=== PATIENT | female | born 1975 | race Caucasian/White ===

== ENCOUNTER 2017-03-16 19:58 | Inpatient (IN) ==
[2017-03-16 21:06] LABS: Basophils % 0.5 %; Eosinophils % 0.3 %; Hematocrit 35.6 % (35.3-44.9); Hemoglobin 12.2 g/dL (11.5-15.4); Immature Granulocytes % 0.3 % (0-4); Lymphocytes # 0.2 K/mcL (0.6-4.6); Lymphocytes % 4.7 %; Mean Corpuscular HGB Conc 34.3 g/dL (31.6-35.5); Mean Corpuscular Hemoglobin 29.7 pg (28.0-33.3); Mean Corpuscular Volume 86.6 fL (83.0-100.0); Mean Platelet Volume 10.8 fL (9.4-12.4); Monocytes # 0.3 K/mcL (0.0-1.3); Monocytes % 6.6 %; Neutrophils # 3.3 K/mcL (1.6-8.9); Platelet Count 228 K/mcL (140-400); Red Blood Count 4.11 M/mcL (3.82-4.97); Red Cell Distribution Width 13.3 % (11.5-14.5); Segmented Neutrophils % 87.6 %
[2017-03-16 21:16] LABS: Alanine Aminotransferase 26 Units/L (0-55); Albumin 3.6 g/dL (3.5-5.0); Albumin/Globulin Ratio 1.1 (1.1-2.2); Alkaline Phosphatase 87 Units/L (38-126); Aspartate Amino Transferase 27 Units/L (5-34); BUN/Creatinine Ratio 18 (6-26); Bilirubin,Total 1.1 mg/dL (0.2-1.2); Blood Urea Nitrogen 20 mg/dL (7-20); Calcium 9.1 mg/dL (8.6-10.8); Carbon Dioxide 23 mEq/L (19-29); Chloride 104 mEq/L (98-109); Globulin 3.4 g/dL (2.4-3.5); Glucose 126 mg/dL (70-99); Osmolality,Calculated 286 (280-300); Potassium 3.6 mEq/L (3.5-4.5); Sodium 136 mEq/L (136-145); eGFR For African Americans > 60 (> 60); eGFR For Non-African Americans 55 (> 60)
[2017-03-16 21:38] LABS: Platelet Estimate Normal (Normal)
[2017-03-16] MEDS ORDERED: 0.9 % Sodium Chloride 1,000 ML IVC ONE ×2 (22:14→23:41)
[2017-03-16] MEDS ORDERED: Ketorolac 15 MG/ML VIAL IVP ONE (22:14)
[2017-03-16 22:44] LABS: Bilirubin,Urine Negative (Negative); Blood,Urine Negative (Negative); Clarity,Urine Cloudy (Clear); Color,Urine Yellow (Yellow); Glucose,Urine (UA) Normal (Normal); Ketones,Urine Negative (Negative); Leukocyte Esterase,Urine Negative (Negative); Nitrite,Urine Negative (Negative); PH,Urine 7.5 pH Units (5.0-8.0); Protein,Urine Negative (Neg-Trace); Specific Gravity,Urine 1.021 (1.010-1.025); Urobilinogen,Urine Normal (Normal)
[2017-03-16 22:47] LABS: Bacteria,Urine None Seen per hpf (None-Few); Hyaline Casts,Urine None Seen per lpf (None-Few); Squamous Epithelial Cell,Urine Many per lpf (None-Few); WBC,Urine 0-3 per hpf (0-3)
[2017-03-16] MEDS ORDERED: Vancomycin 1,750 MG in D5% in Water 250 ML IVPB ONE (22:48)
[2017-03-16] MEDS ORDERED: *HR* Midazolam HCl 2 MG/2 ML VIAL IVP ONE (22:50)
--- NOTE | 2017-03-16 23:23 | Emergency Department Note ---
Disposition Clinical Impression: Fever Qualifiers: Fever type: unspecified Qualified Code(s): R50.9 - Fever, unspecified Headache Qualifiers: Headache type: unspecified Headache chronicity pattern: unspecified pattern Intractability: intractable Qualified Code(s): R51 - Headache Disposition: Admitted As Inpatient Condition: Fair Time of Disposition: 23:48 Fever HPI - General Chief Complaint: ED Fever Stated Complaint: "fever 102.6" syncope, lethargic Time Seen by Provider: 03/16/17 21:33 Source: patient Mode of arrival: ambulatory Limitations: no limitations Nursing Notes Reviewed: Yes Vital Signs Reviewed: Yes - History of Present Illness HPI Narrative: 42-year-old female presents with abrupt onset of fever, back pain, and headache about 4 PM today. No associated cough, nausea or vomiting, abdominal pain, change in urination or bowel movements. Patient is not immunocompromised and has no history of IV drug abuse. No sick contacts. No recent travel. Does work in a hospital. She does not have any confusion, vision problems, chest pain, rashes or edema. Denies any ingestions or exposures. - Related Data Home Medications Medication Instructions Recorded Confirmed Estradiol 1 mg PO HS 05/19/16 03/17/17 Levothyroxine [Synthroid] 25 mcg PO DAILY 05/19/16 03/17/17 Pantoprazole Sodium [Protonix] 40 mg PO DAILY 07/07/16 03/17/17 Ibuprofen [Motrin] 200 mg PO Q6HR PRN 10/31/16 03/17/17 Loratadine [Allergy Relief] 10 mg PO DAILY PRN 10/31/16 03/17/17 Estradiol [Estrace] 1 appl VG QWEEK 12/16/16 03/17/17 Loperamide [Imodium] 2 mg PO TID PRN 12/16/16 03/17/17 Previous Rx's Medication Instructions Recorded Cefdinir [Omnicef] 300 mg PO BID 5 Days 03/22/17 Allergies Allergy/AdvReac Type Severity Reaction Status Date / Time No Known Allergies Allergy Verified 03/16/17 20:09 All systems ED: reviewed and negative except as stated. Fever PMH - Past Medical History Medical history: Reports: GERD, thyroid disease Surgical history: Reports: hysterectomy Psychiatric history: Reports: no psych history - Social History Smoking Status: Never smoker Alcohol use: Reports: none Drug use: Reports: none Physical Exam - Head Head exam: atraumatic, normocephalic, normal inspection - Eye Eye exam: Present: normal appearance, PERRL, EOMI - ENT ENT exam: normal exam, normal oropharynx, mucous membranes moist - Neck Neck exam: Present: normal inspection, full ROM, trachea midline - Chest Chest inspection: Present: normal inspection, symmetric chest wall rise - Respiratory Respiratory exam: Clear to auscultation bilaterally without wheezes rales or rhonchi Cardiovascular Cardiovascular exam: Present: regular rate, normal rhythm, normal heart sounds - Abdominal Exam Abdominal exam: Present: soft, Non-Tender. Absent: tenderness, distention, guarding, rebound, rigidity - Extremities Exam Extremities exam: Present: normal inspection, full ROM - Expanded Lower Extremity Exam Hip/Pelvis exam: Present: normal inspection, full ROM - Back Exam Shows diffuse back tenderness without step-off or deformity. Normal inspection. - Neurological Exam Neurological exam: Present: Wakens to voice, oriented X3, CN II-XII intact - Psychiatric Psychiatric exam: Present: normal affect, normal mood - Skin Skin exam: Present: warm, dry, intact, normal color - General General appearance: alert Course - Reevaluation(s) Reevaluation #1: Influenza negative. Urinalysis and chest x-ray negative. LP results pending. Patient given 2 g of Rocephin, vancomycin, and acyclovir. Hospitalist was paged. Time: 23:27 Reevaluation #2: CSF clear with less than 3 total nucleated cells. Accepted by Dr. Pope for further evaluation and management. Time: 23:48 Vital Signs Temperature 100.9 F H 03/16/17 20:05 Pulse Rate 136 03/16/17 20:05 Respiratory Rate 20 03/16/17 20:05 Blood Pressure 108/69 03/16/17 20:05 O2 Sat by Pulse Oximetry 95 03/16/17 20:05 Temperature 97.7 F 03/22/17 06:32 Pulse Rate 98 03/22/17 06:32 Respiratory Rate 17 03/22/17 06:32 Blood Pressure 117/77 03/22/17 06:32 O2 Sat by Pulse Oximetry 99 03/22/17 06:32 Oxygen Delivery Oxygen Delivery Room Air Procedures - Lumbar Puncture Consent Obtained: written consent Time Out Performed: Yes Patient Position: upright Skin Prep: 0.5% Chlorhexidine/Alcohol Local Anesthetic: lidocaine 1% Amount of anesthesia used (mL): 3 Spinal Needle Gauge: 22G Interspace Used: L3-L4 Fluid Initially Obtained: clear Complications: none Fever - Lab Data Result diagrams: 03/22/17 04:44 03/22/17 04:44 Lab Results 03/16/17 03/16/17 03/16/17 Range/Units 20:56 20:56 20:56 WBC 3.8 L (4.3-11.1) K/mcL RBC 4.11 (3.82-4.97) M/mcL Hgb 12.2 (11.5-15.4) g/dL Hct 35.6 (35.3-44.9) % MCV 86.6 (83.0-100.0) fL MCH 29.7 (28.0-33.3) pg MCHC 34.3 (31.6-35.5) g/dL RDW 13.3 (11.5-14.5) % Plt Count 228 (140-400) K/mcL MPV 10.8 (9.4-12.4) fL Immature Gran % 0.3 (0-4) % Seg Neutrophils % 87.6 % Lymphocytes % 4.7 % Monocytes % 6.6 % Eosinophils % 0.3 % Basophils % 0.5 % Neutrophils # 3.3 (1.6-8.9) K/mcL Lymphocytes # 0.2 L (0.6-4.6) K/mcL Monocytes # 0.3 (0.0-1.3) K/mcL Eosinophils # 0.0 (0.0-0.6) K/mcL Basophils # 0.0 (0.0-0.2) K/mcL Platelet Estimate Normal (Normal) Microcytosis (Not Present) ESR (0-15) mm/hr Sodium 136 (136-145) mEq/L Potassium 3.6 (3.5-4.5) mEq/L Chloride 104 (98-109) mEq/L Carbon Dioxide 23 (19-29) mEq/L BUN 20 (7-20) mg/dL Creatinine 1.10 (0.57-1.11) mg/dL Est GFR ( Amer) > 60 (> 60) Est GFR (Non-Af Amer) 55 L (> 60) BUN/Creatinine Ratio 18 (6-26) Glucose 126 H (70-99) mg/dL Calculated Osmolality 286 (280-300) Lactic Acid 1.3 (0.5-2.2) mmol/L Calcium 9.1 (8.6-10.8) mg/dL Total Bilirubin 1.1 (0.2-1.2) mg/dL AST 27 (5-34) Units/L ALT 26 (0-55) Units/L Alkaline Phosphatase 87 (38-126) Units/L C-Reactive Protein (Less than 5) mg/L Serum Total Protein 7.0 (6.0-8.3) g/dL Albumin 3.6 (3.5-5.0) g/dL Globulin 3.4 (2.4-3.5) g/dL Albumin/Globulin Ratio 1.1 (1.1-2.2) Urine Color (Yellow) Urine Clarity (Clear) Urine pH (5.0-8.0) pH Units Ur Specific [place] (1.010-1.025) Urine Protein (Neg-Trace) mg/dL Urine Glucose (UA) (Normal) mg/dL Urine Ketones (Negative) mg/dL Urine Blood (Negative) Urine Nitrite (Negative) Urine Bilirubin (Negative) Urine Urobilinogen (Normal) mg/dL Ur Leukocyte Esterase (Negative) Urine Microscopic RBC (0-3) per hpf Urine Microscopic WBC (0-3) per hpf Ur Squamous Epith Cells (None-Few) per lpf Urine Bacteria (None-Few) per hpf Hyaline Casts (None-Few) per lpf Ur Culture Indicated? (NO) CSF Volume mL CSF Appearance (Clear) CSF Color (Colorless) CSF RBC (0.000 - 0.002) M/mcL CSF Tot Nucleated Cells (0-5) TNC/mcL CSF Seg Neutrophils CSF Band Neutrophils % CSF Lymphocytes % CSF Monocytes % CSF Eosinophils % CSF Basophils % CSF Other Cells % CSF Glucose (40-70) mg/dL CSF Xanth Comm (Not Observe) CSF Total Protein (15-45) mg/dL MAREK Screen (None Detected) Chlamy pneumoniae PCR (Not Detect) Adenovirus (PCR) (Not Detect) B. pertussis DNA (PCR) (Not Detect) Coronavirus OC43 (PCR) (Not Detect) Coronavirus HKU1 (PCR) (Not Detect) Coronavirus 229E (PCR) (Not Detect) Coronavirus NL63 (PCR) (Not Detect) EBV Capsid Ag IgG Ab (0.0-21.9) U/mL EBV Capsid Ag IgM Ab (0.0-43.9) U/mL EBV Early Antigen IgG (0.0-10.9) U/mL EBV Nuclear Ag Ab Titer (0.0-21.9) U/mL Herpes Simplex Source Herpes Simplex DNA PCR Human Metapneumovirus (Not Detect) Infectious [place] Assay (Negative) Influenza A (H1) PCR (Not Detect) Influ A (H1N1/09) PCR (Not Detect) Influenza A (H3) PCR (Not Detect) Influenza A Untype (PCR) (Not Detect) Influenza Type B (PCR) (Not Detect) M.pneumoniae DNA (PCR) (Not Detect) Parainfluenza 1 (PCR) (Not Detect) Parainfluenza 2 (PCR) (Not Detect) Parainfluenza 3 (PCR) (Not Detect) Parainfluenza 4 (PCR) (Not Detect) RSV (PCR) (Not Detect) Entero/Rhino (PCR) (Not Detect) 03/16/17 03/16/17 03/16/17 Range/Units 22:33 23:00 23:00 WBC (4.3-11.1) K/mcL RBC (3.82-4.97) M/mcL Hgb (11.5-15.4) g/dL Hct (35.3-44.9) % MCV (83.0-100.0) fL MCH (28.0-33.3) pg MCHC (31.6-35.5) g/dL RDW (11.5-14.5) % Plt Count (140-400) K/mcL MPV (9.4-12.4) fL Immature Gran % (0-4) % Seg Neutrophils % % Lymphocytes % % Monocytes % % Eosinophils % % Basophils % % Neutrophils # (1.6-8.9) K/mcL Lymphocytes # (0.6-4.6) K/mcL Monocytes # (0.0-1.3) K/mcL Eosinophils # (0.0-0.6) K/mcL Basophils # (0.0-0.2) K/mcL Platelet Estimate (Normal) Microcytosis (Not Present) ESR (0-15) mm/hr Sodium (136-145) mEq/L Potassium (3.5-4.5) mEq/L Chloride (98-109) mEq/L Carbon Dioxide (19-29) mEq/L BUN (7-20) mg/dL Creatinine (0.57-1.11) mg/dL Est GFR ( Amer) (> 60) Est GFR (Non-Af Amer) (> 60) BUN/Creatinine Ratio (6-26) Glucose (70-99) mg/dL Calculated Osmolality (280-300) Lactic Acid (0.5-2.2) mmol/L Calcium (8.6-10.8) mg/dL Total Bilirubin (0.2-1.2) mg/dL AST (5-34) Units/L ALT (0-55) Units/L Alkaline Phosphatase (38-126) Units/L C-Reactive Protein (Less than 5) mg/L Serum Total Protein (6.0-8.3) g/dL Albumin (3.5-5.0) g/dL Globulin (2.4-3.5) g/dL Albumin/Globulin Ratio (1.1-2.2) Urine Color Yellow (Yellow) Urine Clarity Cloudy A (Clear) Urine pH 7.5 (5.0-8.0) pH Units Ur Specific [place] 1.021 (1.010-1.025) Urine Protein Negative (Neg-Trace) mg/dL Urine Glucose (UA) Normal (Normal) mg/dL Urine Ketones Negative (Negative) mg/dL Urine Blood Negative (Negative) Urine Nitrite Negative (Negative) Urine Bilirubin Negative (Negative) Urine Urobilinogen Normal (Normal) mg/dL Ur Leukocyte Esterase Negative (Negative) Urine Microscopic RBC 3-5 H (0-3) per hpf Urine Microscopic WBC 0-3 (0-3) per hpf Ur Squamous Epith Cells Many H (None-Few) per lpf Urine Bacteria None Seen (None-Few) per hpf Hyaline Casts None Seen (None-Few) per lpf Ur Culture Indicated? NO (NO) CSF Volume 4.0 mL CSF Appearance Clear (Clear) CSF Color Colorless (Colorless) CSF RBC < 0.002 (0.000 - 0.002) M/mcL CSF Tot Nucleated Cells < 3 (0-5) TNC/mcL CSF Seg Neutrophils TNP CSF Band Neutrophils % TNP CSF Lymphocytes % TNP CSF Monocytes % TNP CSF Eosinophils % TNP CSF Basophils % TNP CSF Other Cells % TNP CSF Glucose 59 (40-70) mg/dL CSF Xanth Comm Not Observed (Not Observe) CSF Total Protein 43 (15-45) mg/dL MAREK Screen (None Detected) Chlamy pneumoniae PCR (Not Detect) Adenovirus (PCR) (Not Detect) B. pertussis DNA (PCR) (Not Detect) Coronavirus OC43 (PCR) (Not Detect) Coronavirus HKU1 (PCR) (Not Detect) Coronavirus 229E (PCR) (Not Detect) Coronavirus NL63 (PCR) (Not Detect) EBV Capsid Ag IgG Ab (0.0-21.9) U/mL EBV Capsid Ag IgM Ab (0.0-43.9) U/mL EBV Early Antigen IgG (0.0-10.9) U/mL EBV Nuclear Ag Ab Titer (0.0-21.9) U/mL Herpes Simplex Source CSF Herpes Simplex DNA PCR NOT DETECTED Human Metapneumovirus (Not Detect) Infectious [place] Assay (Negative) Influenza A (H1) PCR (Not Detect) Influ A (H1N1/09) PCR (Not Detect) Influenza A (H3) PCR (Not Detect) Influenza A Untype (PCR) (Not Detect) Influenza Type B (PCR) (Not Detect) M.pneumoniae DNA (PCR) (Not Detect) Parainfluenza 1 (PCR) (Not Detect) Parainfluenza 2 (PCR) (Not Detect) Parainfluenza 3 (PCR) (Not Detect) Parainfluenza 4 (PCR) (Not Detect) RSV (PCR) (Not Detect) Entero/Rhino (PCR) (Not Detect) 03/17/17 03/17/17 03/17/17 Range/Units 05:28 05:28 15:24 WBC 1.7 L D (4.3-11.1) K/mcL RBC 3.61 L (3.82-4.97) M/mcL Hgb 10.8 L (11.5-15.4) g/dL Hct 31.5 L (35.3-44.9) % MCV 87.3 (83.0-100.0) fL MCH 29.9 (28.0-33.3) pg MCHC 34.3 (31.6-35.5) g/dL RDW 13.1 (11.5-14.5) % Plt Count 169 (140-400) K/mcL MPV 10.9 (9.4-12.4) fL Immature Gran % 0.0 (0-4) % Seg Neutrophils % 71.2 % Lymphocytes % 13.8 % Monocytes % 13.8 % Eosinophils % 0.0 % Basophils % 1.2 % Neutrophils # 1.2 L (1.6-8.9) K/mcL Lymphocytes # 0.2 L (0.6-4.6) K/mcL Monocytes # 0.2 (0.0-1.3) K/mcL Eosinophils # 0.0 (0.0-0.6) K/mcL Basophils # 0.0 (0.0-0.2) K/mcL Platelet Estimate Normal (Normal) Microcytosis Present A (Not Present) ESR 10 (0-15) mm/hr Sodium 136 (136-145) mEq/L Potassium 3.2 L (3.5-4.5) mEq/L Chloride 106 (98-109) mEq/L Carbon Dioxide 23 (19-29) mEq/L BUN 15 (7-20) mg/dL Creatinine 0.75 (0.57-1.11) mg/dL Est GFR ( Amer) > 60 (> 60) Est GFR (Non-Af Amer) > 60 (> 60) BUN/Creatinine Ratio 20 (6-26) Glucose 110 H (70-99) mg/dL Calculated Osmolality 283 (280-300) Lactic Acid (0.5-2.2) mmol/L Calcium 8.0 L (8.6-10.8) mg/dL Total Bilirubin (0.2-1.2) mg/dL AST (5-34) Units/L ALT (0-55) Units/L Alkaline Phosphatase (38-126) Units/L C-Reactive Protein (Less than 5) mg/L Serum Total Protein (6.0-8.3) g/dL Albumin (3.5-5.0) g/dL Globulin (2.4-3.5) g/dL Albumin/Globulin Ratio (1.1-2.2) Urine Color (Yellow) Urine Clarity (Clear) Urine pH (5.0-8.0) pH Units Ur Specific [place] (1.010-1.025) Urine Protein (Neg-Trace) mg/dL Urine Glucose (UA) (Normal) mg/dL Urine Ketones (Negative) mg/dL Urine Blood (Negative) Urine Nitrite (Negative) Urine Bilirubin (Negative) Urine Urobilinogen (Normal) mg/dL Ur Leukocyte Esterase (Negative) Urine Microscopic RBC (0-3) per hpf Urine Microscopic WBC (0-3) per hpf Ur Squamous Epith Cells (None-Few) per lpf Urine Bacteria (None-Few) per hpf Hyaline Casts (None-Few) per lpf Ur Culture Indicated? (NO) CSF Volume mL CSF Appearance (Clear) CSF Color (Colorless) CSF RBC (0.000 - 0.002) M/mcL CSF Tot Nucleated Cells (0-5) TNC/mcL CSF Seg Neutrophils CSF Band Neutrophils % CSF Lymphocytes % CSF Monocytes % CSF Eosinophils % CSF Basophils % CSF Other Cells % CSF Glucose (40-70) mg/dL CSF Xanth Comm (Not Observe) CSF Total Protein (15-45) mg/dL MAREK Screen (None Detected) Chlamy pneumoniae PCR (Not Detect) Adenovirus (PCR) (Not Detect) B. pertussis DNA (PCR) (Not Detect) Coronavirus OC43 (PCR) (Not Detect) Coronavirus HKU1 (PCR) (Not Detect) Coronavirus 229E (PCR) (Not Detect) Coronavirus NL63 (PCR) (Not Detect) EBV Capsid Ag IgG Ab (0.0-21.9) U/mL EBV Capsid Ag IgM Ab (0.0-43.9) U/mL EBV Early Antigen IgG (0.0-10.9) U/mL EBV Nuclear Ag Ab Titer (0.0-21.9) U/mL Herpes Simplex Source Herpes Simplex DNA PCR Human Metapneumovirus (Not Detect) Infectious [place] Assay (Negative) Influenza A (H1) PCR (Not Detect) Influ A (H1N1/09) PCR (Not Detect) Influenza A (H3) PCR (Not Detect) Influenza A Untype (PCR) (Not Detect) Influenza Type B (PCR) (Not Detect) M.pneumoniae DNA (PCR) (Not Detect) Parainfluenza 1 (PCR) (Not Detect) Parainfluenza 2 (PCR) (Not Detect) Parainfluenza 3 (PCR) (Not Detect) Parainfluenza 4 (PCR) (Not Detect) RSV (PCR) (Not Detect) Entero/Rhino (PCR) (Not Detect) 03/17/17 03/17/17 03/17/17 Range/Units 15:24 15:24 15:24 WBC (4.3-11.1) K/mcL RBC (3.82-4.97) M/mcL Hgb (11.5-15.4) g/dL Hct (35.3-44.9) % MCV (83.0-100.0) fL MCH (28.0-33.3) pg MCHC (31.6-35.5) g/dL RDW (11.5-14.5) % Plt Count (140-400) K/mcL MPV (9.4-12.4) fL Immature Gran % (0-4) % Seg Neutrophils % % Lymphocytes % % Monocytes % % Eosinophils % % Basophils % % Neutrophils # (1.6-8.9) K/mcL Lymphocytes # (0.6-4.6) K/mcL Monocytes # (0.0-1.3) K/mcL Eosinophils # (0.0-0.6) K/mcL Basophils # (0.0-0.2) K/mcL Platelet Estimate (Normal) Microcytosis (Not Present) ESR (0-15) mm/hr Sodium (136-145) mEq/L Potassium (3.5-4.5) mEq/L Chloride (98-109) mEq/L Carbon Dioxide (19-29) mEq/L BUN (7-20) mg/dL Creatinine (0.57-1.11) mg/dL Est GFR ( Amer) (> 60) Est GFR (Non-Af Amer) (> 60) BUN/Creatinine Ratio (6-26) Glucose (70-99) mg/dL Calculated Osmolality (280-300) Lactic Acid (0.5-2.2) mmol/L Calcium (8.6-10.8) mg/dL Total Bilirubin (0.2-1.2) mg/dL AST (5-34) Units/L ALT (0-55) Units/L Alkaline Phosphatase (38-126) Units/L C-Reactive Protein 31 H (Less than 5) mg/L Serum Total Protein (6.0-8.3) g/dL Albumin (3.5-5.0) g/dL Globulin (2.4-3.5) g/dL Albumin/Globulin Ratio (1.1-2.2) Urine Color (Yellow) Urine Clarity (Clear) Urine pH (5.0-8.0) pH Units Ur Specific [place] (1.010-1.025) Urine Protein (Neg-Trace) mg/dL Urine Glucose (UA) (Normal) mg/dL Urine Ketones (Negative) mg/dL Urine Blood (Negative) Urine Nitrite (Negative) Urine Bilirubin (Negative) Urine Urobilinogen (Normal) mg/dL Ur Leukocyte Esterase (Negative) Urine Microscopic RBC (0-3) per hpf Urine Microscopic WBC (0-3) per hpf Ur Squamous Epith Cells (None-Few) per lpf Urine Bacteria (None-Few) per hpf Hyaline Casts (None-Few) per lpf Ur Culture Indicated? (NO) CSF Volume mL CSF Appearance (Clear) CSF Color (Colorless) CSF RBC (0.000 - 0.002) M/mcL CSF Tot Nucleated Cells (0-5) TNC/mcL CSF Seg Neutrophils CSF Band Neutrophils % CSF Lymphocytes % CSF Monocytes % CSF Eosinophils % CSF Basophils % CSF Other Cells % CSF Glucose (40-70) mg/dL CSF Xanth Comm (Not Observe) CSF Total Protein (15-45) mg/dL [place]ARE[place] Screen NONE DETECTED (None Detected) Chlamy pneumoniae PCR (Not Detect) Adenovirus (PCR) (Not Detect) B. pertussis DNA (PCR) (Not Detect) Coronavirus OC43 (PCR) (Not Detect) Coronavirus HKU1 (PCR) (Not Detect) Coronavirus 229E (PCR) (Not Detect) Coronavirus NL63 (PCR) (Not Detect) EBV Capsid Ag IgG Ab 616.0 H (0.0-21.9) U/mL EBV Capsid Ag IgM Ab <10.0 (0.0-43.9) U/mL EBV Early Antigen IgG 39.2 H (0.0-10.9) U/mL EBV Nuclear Ag Ab Titer >600.0 H (0.0-21.9) U/mL Herpes Simplex Source Herpes Simplex DNA PCR Human Metapneumovirus (Not Detect) Infectious [place] Assay (Negative) Influenza A (H1) PCR (Not Detect) Influ A (H1N1/09) PCR (Not Detect) Influenza A (H3) PCR (Not Detect) Influenza A Untype (PCR) (Not Detect) Influenza Type B (PCR) (Not Detect) M.pneumoniae DNA (PCR) (Not Detect) Parainfluenza 1 (PCR) (Not Detect) Parainfluenza 2 (PCR) (Not Detect) Parainfluenza 3 (PCR) (Not Detect) Parainfluenza 4 (PCR) (Not Detect) RSV (PCR) (Not Detect) Entero/Rhino (PCR) (Not Detect) 03/18/17 03/18/17 03/18/17 Range/Units 12:38 13:17 13:46 WBC 1.5 L (4.3-11.1) K/mcL RBC 3.73 L (3.82-4.97) M/mcL Hgb 10.9 L (11.5-15.4) g/dL Hct 33.9 L (35.3-44.9) % MCV 90.9 (83.0-100.0) fL MCH 29.2 (28.0-33.3) pg MCHC 32.2 (31.6-35.5) g/dL RDW 13.6 (11.5-14.5) % Plt Count 148 (140-400) K/mcL MPV 10.9 (9.4-12.4) fL Immature Gran % 0.0 (0-4) % Seg Neutrophils % 52.3 % Lymphocytes % 31.8 % Monocytes % 10.6 % Eosinophils % 4.0 % Basophils % 1.3 % Neutrophils # 0.8 L (1.6-8.9) K/mcL Lymphocytes # 0.5 L (0.6-4.6) K/mcL Monocytes # 0.2 (0.0-1.3) K/mcL Eosinophils # 0.1 (0.0-0.6) K/mcL Basophils # 0.0 (0.0-0.2) K/mcL Platelet Estimate Normal (Normal) Microcytosis (Not Present) ESR (0-15) mm/hr Sodium 141 (136-145) mEq/L Potassium 4.0 (3.5-4.5) mEq/L Chloride 110 H (98-109) mEq/L Carbon Dioxide 25 (19-29) mEq/L BUN 5 L D (7-20) mg/dL Creatinine 0.71 (0.57-1.11) mg/dL Est GFR ( Amer) > 60 (> 60) Est GFR (Non-Af Amer) > 60 (> 60) BUN/Creatinine Ratio 7 (6-26) Glucose 101 H (70-99) mg/dL Calculated Osmolality 289 (280-300) Lactic Acid (0.5-2.2) mmol/L Calcium 8.4 L (8.6-10.8) mg/dL Total Bilirubin (0.2-1.2) mg/dL AST (5-34) Units/L ALT (0-55) Units/L Alkaline Phosphatase (38-126) Units/L C-Reactive Protein (Less than 5) mg/L Serum Total Protein (6.0-8.3) g/dL Albumin (3.5-5.0) g/dL Globulin (2.4-3.5) g/dL Albumin/Globulin Ratio (1.1-2.2) Urine Color (Yellow) Urine Clarity (Clear) Urine pH (5.0-8.0) pH Units Ur Specific [place] (1.010-1.025) Urine Protein (Neg-Trace) mg/dL Urine Glucose (UA) (Normal) mg/dL Urine Ketones (Negative) mg/dL Urine Blood (Negative) Urine Nitrite (Negative) Urine Bilirubin (Negative) Urine Urobilinogen (Normal) mg/dL Ur Leukocyte Esterase (Negative) Urine Microscopic RBC (0-3) per hpf Urine Microscopic WBC (0-3) per hpf Ur Squamous Epith Cells (None-Few) per lpf Urine Bacteria (None-Few) per hpf Hyaline Casts (None-Few) per lpf Ur Culture Indicated? (NO) CSF Volume mL CSF Appearance (Clear) CSF Color (Colorless) CSF RBC (0.000 - 0.002) M/mcL CSF Tot Nucleated Cells (0-5) TNC/mcL CSF Seg Neutrophils CSF Band Neutrophils % CSF Lymphocytes % CSF Monocytes % CSF Eosinophils % CSF Basophils % CSF Other Cells % CSF Glucose (40-70) mg/dL CSF Xanth Comm (Not Observe) CSF Total Protein (15-45) mg/dL MARE[place] Screen (None Detected) Chlamy pneumoniae PCR (Not Detect) Adenovirus (PCR) (Not Detect) B. pertussis DNA (PCR) (Not Detect) Coronavirus OC43 (PCR) (Not Detect) Coronavirus HKU1 (PCR) (Not Detect) Coronavirus 229E (PCR) (Not Detect) Coronavirus NL63 (PCR) (Not Detect) EBV Capsid Ag IgG Ab (0.0-21.9) U/mL EBV Capsid Ag IgM Ab (0.0-43.9) U/mL EBV Early Antigen IgG (0.0-10.9) U/mL EBV Nuclear Ag Ab Titer (0.0-21.9) U/mL Herpes Simplex Source Herpes Simplex DNA PCR Human Metapneumovirus (Not Detect) Infectious [place] Assay Negative (Negative) Influenza A (H1) PCR (Not Detect) Influ A (H1N1/09) PCR (Not Detect) Influenza A (H3) PCR (Not Detect) Influenza A Untype (PCR) (Not Detect) Influenza Type B (PCR) (Not Detect) M.pneumoniae DNA (PCR) (Not Detect) Parainfluenza 1 (PCR) (Not Detect) Parainfluenza 2 (PCR) (Not Detect) Parainfluenza 3 (PCR) (Not Detect) Parainfluenza 4 (PCR) (Not Detect) RSV (PCR) (Not Detect) Entero/Rhino (PCR) (Not Detect) 03/18/17 03/18/17 Range/Units 13:46 14:10 WBC (4.3-11.1) K/mcL RBC (3.82-4.97) M/mcL Hgb (11.5-15.4) g/dL Hct (35.3-44.9) % MCV (83.0-100.0) fL MCH (28.0-33.3) pg MCHC (31.6-35.5) g/dL RDW (11.5-14.5) % Plt Count (140-400) K/mcL MPV (9.4-12.4) fL Immature Gran % (0-4) % Seg Neutrophils % % Lymphocytes % % Monocytes % % Eosinophils % % Basophils % % Neutrophils # (1.6-8.9) K/mcL Lymphocytes # (0.6-4.6) K/mcL Monocytes # (0.0-1.3) K/mcL Eosinophils # (0.0-0.6) K/mcL Basophils # (0.0-0.2) K/mcL Platelet Estimate (Normal) Microcytosis (Not Present) ESR (0-15) mm/hr Sodium (136-145) mEq/L Potassium (3.5-4.5) mEq/L Chloride (98-109) mEq/L Carbon Dioxide (19-29) mEq/L BUN (7-20) mg/dL Creatinine (0.57-1.11) mg/dL Est GFR ( Amer) (> 60) Est GFR (Non-Af Amer) (> 60) BUN/Creatinine Ratio (6-26) Glucose (70-99) mg/dL Calculated Osmolality (280-300) Lactic Acid (0.5-2.2) mmol/L Calcium (8.6-10.8) mg/dL Total Bilirubin (0.2-1.2) mg/dL AST (5-34) Units/L ALT (0-55) Units/L Alkaline Phosphatase (38-126) Units/L C-Reactive Protein (Less than 5) mg/L Serum Total Protein (6.0-8.3) g/dL Albumin (3.5-5.0) g/dL Globulin (2.4-3.5) g/dL Albumin/Globulin Ratio (1.1-2.2) Urine Color (Yellow) Urine Clarity (Clear) Urine pH (5.0-8.0) pH Units Ur Specific [place] (1.010-1.025) Urine Protein (Neg-Trace) mg/dL Urine Glucose (UA) (Normal) mg/dL Urine Ketones (Negative) mg/dL Urine Blood (Negative) Urine Nitrite (Negative) Urine Bilirubin (Negative) Urine Urobilinogen (Normal) mg/dL Ur Leukocyte Esterase (Negative) Urine Microscopic RBC (0-3) per hpf Urine Microscopic WBC (0-3) per hpf Ur Squamous Epith Cells (None-Few) per lpf Urine Bacteria (None-Few) per hpf Hyaline Casts (None-Few) per lpf Ur Culture Indicated? (NO) CSF Volume mL CSF Appearance (Clear) CSF Color (Colorless) CSF RBC (0.000 - 0.002) M/mcL CSF Tot Nucleated Cells (0-5) TNC/mcL CSF Seg Neutrophils CSF Band Neutrophils % CSF Lymphocytes % CSF Monocytes % CSF Eosinophils % CSF Basophils % CSF Other Cells % CSF Glucose (40-70) mg/dL CSF Xanth Comm (Not Observe) CSF Total Protein (15-45) mg/dL MAREK Screen (None Detected) Chlamy pneumoniae PCR Not Detected (Not Detect) Adenovirus (PCR) Not Detected (Not Detect) B. pertussis DNA (PCR) Not Detected (Not Detect) Coronavirus OC43 (PCR) Not Detected (Not Detect) Coronavirus HKU1 (PCR) Not Detected (Not Detect) Coronavirus 229E (PCR) Not Detected (Not Detect) Coronavirus NL63 (PCR) Not Detected (Not Detect) EBV Capsid Ag IgG Ab (0.0-21.9) U/mL EBV Capsid Ag IgM Ab Negative (0.0-43.9) U/mL EBV Early Antigen IgG (0.0-10.9) U/mL EBV Nuclear Ag Ab Titer (0.0-21.9) U/mL Herpes Simplex Source Herpes Simplex DNA PCR Human Metapneumovirus Not Detected (Not Detect) Infectious [place] Assay (Negative) Influenza A (H1) PCR Not Detected (Not Detect) Influ A (H1N1/09) PCR Not Detected (Not Detect) Influenza A (H3) PCR Not Detected (Not Detect) Influenza A Untype (PCR) Not Detected (Not Detect) Influenza Type B (PCR) Not Detected (Not Detect) M.pneumoniae DNA (PCR) Not Detected (Not Detect) Parainfluenza 1 (PCR) Not Detected (Not Detect) Parainfluenza 2 (PCR) Not Detected (Not Detect) Parainfluenza 3 (PCR) Not Detected (Not Detect) Parainfluenza 4 (PCR) Not Detected (Not Detect) RSV (PCR) Not Detected (Not Detect) Entero/Rhino (PCR) Not Detected (Not Detect) Attestation Statement - Attestation Attestation: I examined this patient and my medical decision-making was reviewed with the DEVELOPER EVANGELIST/PA/Advanced Practice Nurse/Resident Physician. I agree with the documented findings, disposition and treatment plan as described except to the extent set forth below. Patient emergency department with a fever. Headache. No cough no urinary symptoms. On exam patient is laying on her side crying. No nuchal rigidity. Abdomen soft nontender lungs clear. No rashes. Plan. Patient with an unknown source. Lumbar puncture was performed by Dr. Hathaway. Starting broad-spectrum antibiotics and acyclovir. Admitted to medicine pending cultures. 30 minutes of critical care exclusive of separately billable procedures.
[2017-03-16 23:24] LABS: Red Blood Cell,CSF < 0.002 M/mcL
[2017-03-16 23:25] LABS: Appearance,CSF Clear (Clear)
[2017-03-16 23:50] LABS: Glucose,CSF 59 mg/dL (40-70); Total Protein,CSF 43 mg/dL (15-45)
[2017-03-17] MEDS: Acyclovir 1,000 MG in D5% in Water 250 ML IVPB SCH ×3 (00:59→22:02)
[2017-03-17] MEDS ORDERED: *HR* OxyCODONE/APAP 5/325 TABLET ONE (01:38)
[2017-03-17] MEDS ORDERED: *HR* Promethazine 25 MG/ML VIAL ONE (01:41)
[2017-03-17] MEDS ORDERED: 0.9 % Sodium Chloride 1,000 ML ONE (02:09)
[2017-03-17] MEDS: D5% in 0.9% NACL w KCl 20 MEQ/1,000 ML MLS IVC SCH ×2 (05:06→18:42)
[2017-03-17 05:46] LABS: Basophils % 1.2 %; Hemoglobin 10.8 g/dL (11.5-15.4); Red Cell Distribution Width 13.1 % (11.5-14.5)
[2017-03-17 05:47] LABS: Hematocrit 31.5 % (35.3-44.9); Lymphocytes # 0.2 K/mcL (0.6-4.6); Lymphocytes % 13.8 %; Mean Corpuscular HGB Conc 34.3 g/dL (31.6-35.5); Mean Corpuscular Hemoglobin 29.9 pg (28.0-33.3); Mean Corpuscular Volume 87.3 fL (83.0-100.0); Mean Platelet Volume 10.9 fL (9.4-12.4); Monocytes # 0.2 K/mcL (0.0-1.3); Monocytes % 13.8 %; Neutrophils # 1.2 K/mcL (1.6-8.9); Platelet Count 169 K/mcL (140-400); Red Blood Count 3.61 M/mcL (3.82-4.97); Segmented Neutrophils % 71.2 %
[2017-03-17 05:55] LABS: BUN/Creatinine Ratio 20 (6-26); Blood Urea Nitrogen 15 mg/dL (7-20); Carbon Dioxide 23 mEq/L (19-29); Chloride 106 mEq/L (98-109); Glucose 110 mg/dL (70-99); Osmolality,Calculated 283 (280-300); Potassium 3.2 mEq/L (3.5-4.5); Sodium 136 mEq/L (136-145); eGFR For African Americans > 60 (> 60); eGFR For Non-African Americans > 60 (> 60)
[2017-03-17 06:12] LABS: Microcytosis Present (Not Present); Platelet Estimate Normal (Normal)
[2017-03-17] MEDS ORDERED: *HR* Promethazine 25 MG/ML VIAL IVP PRN (06:17)
[2017-03-17] MEDS ORDERED: Acetaminophen 325 MG TABLET PO PRN (06:17)
[2017-03-17] MEDS ORDERED: *HR* OxyCODONE/APAP 5/325 TABLET PO PRN (06:20)
[2017-03-17] MEDS ORDERED: Promethazine 12.5 MG in 0.9 % Sodium Chloride 50 ML IVPB PRN (06:30)
[2017-03-17] MEDS: *HR* Heparin 5,000 UNIT/ML VIAL SQ SCH ×2 (06:36→16:50)
[2017-03-17] MEDS: *HR* Morphine 2 MG/ML SYRINGE IVP PRN ×2 (06:36→11:56)
[2017-03-17] MEDS ORDERED: *HR* Morphine 2 MG/ML SYRINGE IVP PRN (15:04)
[2017-03-17] MEDS: Ibuprofen 400 MG TABLET PO PRN ×2 (15:10→23:32)
[2017-03-17] MEDS: Acetaminophen 325 MG TABLET PO PRN (17:02)
[2017-03-18] MEDS: D5% in 0.9% NACL w KCl 20 MEQ/1,000 ML MLS IVC SCH ×2 (02:06→09:55)
[2017-03-18] MEDS: Acyclovir 1,000 MG in D5% in Water 250 ML IVPB SCH (05:46)
[2017-03-18] MEDS: *HR* Heparin 5,000 UNIT/ML VIAL SQ SCH ×2 (05:47→16:50)
[2017-03-18] MEDS: Levothyroxine 25 MCG TABLET PO SCH (05:47)
[2017-03-18] MEDS: Ibuprofen 400 MG TABLET PO PRN ×3 (08:49→23:44)
[2017-03-18] MEDS ORDERED: Fluconazole 100 MG TABLET PO ONE (09:07)
--- NOTE | 2017-03-18 11:38 | Neurology - Consult Note ---
Date of Encounter: 03/18/17 Time of Encounter: 11:32 Assessment and Plan (1) Headache Current Visit: Yes Status: Acute Is my impression that this patient's headache is due to nonneurologic etiologies. Her cerebrospinal fluid was negative, no evidence of infectious or inflammatory component. Her neurologic examination is completely normal. She has no nuchal rigidity. She is not encephalopathic, she is not confused at this juncture. She does however complain of diffuse tenderness of the left ear in the left posterior lateral neck. Perhaps she may have an acute otitis or some other infectious etiology to explain this case in this region. However she does not have a central nervous system vasculitis, she does not have herpes encephalitis. We will recommend more intense medical workup to rule out other potential etiologies for headache including but not limited to acute otitis, as well as workup to explain her leukopenia, and anemia. May discontinue the acyclovir. I would also like to add however that based on her clinical description of some of the headaches she is an undiagnosed migraineur. She experiences cyclic headaches associated with photophobia as well as nausea. Her daughter also has migraine headaches and sees a pediatric neurologist for them. I believe that the migraine diagnosis explains the MRI abnormalities. We will reevaluate her at your request. The documentation in the history of HPI and plan were at least partially created by [employer] voice recognition technology by Dr. Torres. Errors in grammar, wording or other phrases may exist. If errors are found after the documentation signed, they will be addressed individually in the addendum section of this document when appropriate. Qualifiers: Headache type: unspecified Headache chronicity pattern: unspecified pattern Intractability: intractable Qualified Code(s): R51 - Headache History of Present Illness HPI: Ms. Fletcher is a 42 year old female who was seen for neurologic evaluation secondary to headache. The headache actually started on the day of admission. She admits to a somewhat light of frontal headache earlier in the day. Later in the day she recalls attending an [employer] ceremony for her 16-year-old daughter. Within 2 hours of attending that she began to experience very intense chills and apparently had a fever of 103. She was also somewhat confused. She admits to having a slight sore throat, but she has very intense pain of the posterior lateral cervical spine on the left. She does not have nuchal rigidity however but this area of her neck is it is exquisitely tender. She denies diarrhea, she denies chronic cough. She admits to a chronic recurrent sinusitis however the headache from the sinus infections is somewhat different which is experiencing now. From the history obtained she does experience cyclic headaches consisting of photophobia, phonophobia as well as nausea. She has never been diagnosed with migraine headaches however she has a younger daughter who experiences them and sees a neurologist at [facility]. She is not confused or encephalopathic at this juncture. She denies any numbness or paresthesias of the face arms or legs. She does report some swelling of the hands and feet. MRI scan of the brain reveals chronic right maxillary sinusitis, and also reveals deep white matter hyperintensities which are more reminiscent of what we generally see in association with migraine headaches. Lumbar puncture was negative for any evidence of inflammation or infection. Her sedimentation rate was normal. Her WBCs were 3.8 upon admission , and are now 1.7. I am not certain whether not this is delusional or due to some other underlying blood dyscrasia. There is nothing in her history that suggests that she is immunocompromised. Past Med Surg Social Fam HX - Past Medical History Medical history: GERD, thyroid disease Psychiatric history: no psych history - Past Surgical History Surgical History: hysterectomy - Social History Smoking Status: Never smoker Smokeless Tobacco Status: No Alcohol use: none Drug use: none - Family History Father Living Status: Still Living Hx Family Cardiac Disorders: Yes (PAD, HTN) Hx Family Endocrine Disorder: Yes (DM) Medications and Allergies Estradiol 1 mg PO HS 05/19/16 [History] Levothyroxine [Synthroid] 25 mcg PO DAILY 05/19/16 [History] Pantoprazole Sodium [Protonix] 40 mg PO DAILY 07/07/16 [History] Ibuprofen [Motrin] 200 mg PO Q6HR PRN 10/31/16 [History] Loratadine [Allergy Relief] 10 mg PO DAILY PRN 10/31/16 [History] Estradiol [Estrace] 1 appl VG QWEEK 12/16/16 [History] Loperamide [Imodium] 2 mg PO TID PRN 12/16/16 [History] Allergies No Known Allergies Allergy (Verified 03/16/17 20:09) All Systems: A 10-system review of systems was performed and is negative for pertinent findings except as documented above in the HPI. Review of Systems: Consistent with the history of present illness and otherwise negative. Physical Examination - Vital Signs Vital Signs: Initial Vital Signs Temp Pulse Resp BP Pulse Ox 100.9 F H 136 20 108/69 95 03/16/17 20:05 03/16/17 20:05 03/16/17 20:05 03/16/17 20:05 03/16/17 20:05 - Neurologic Detailed motor examination: full strength in all major muscle groups Motor examination - right side: 5/5: deltoids, biceps, triceps, wrist flexion, wrist extension, auto wrecker, hip flexors, tibialis Anterior, quadriceps, toe extension (EHL), plantarflexion Motor examination - left side: 5/5: deltoids, biceps, triceps, wrist flexion, wrist extension, hip flexors, auto wrecker, quadriceps, tibialis Anterior, toe extension (EHL), plantarflexion Mental Status Examination: awake, alert, oriented to person, oriented to place, oriented to time, follows commands appropriately, answers questions appropriately, no agnosia, no aphasia, no aproxia Cranial nerve examination: PERRL, EOMI, visual hanks intact, corneal reflexes brisk symmetrically, sensory to face intact, mastication intact, no facial asymmetry is present, no dysarthria, hearing is intact symmetrically, soft palate elevates bilaterally upon phonation, gag reflex intact, flexes SCM and trapezius muscles symmetrically with full power, tongue protrudes midline, no atrophy or facial fasiculations present Cerebellar examination: no dysmetria, performs finger to nose and heel to gutiérrez symmetrically without ataxia, no gait ataxia, no truncal ataxia, no difficulty with rapid alternating movements Results - Laboratory Findings CBC and BMP: 03/17/17 05:28 03/17/17 05:28 Abnormal lab findings: Abnormal lab results WBC 1.7 K/mcL (4.3-11.1) L D 03/17/17 05:28 RBC 3.61 M/mcL (3.82-4.97) L 03/17/17 05:28 Hgb 10.8 g/dL (11.5-15.4) L 03/17/17 05:28 Hct 31.5 % (35.3-44.9) L 03/17/17 05:28 Neutrophils # 1.2 K/mcL (1.6-8.9) L 03/17/17 05:28 Lymphocytes # 0.2 K/mcL (0.6-4.6) L 03/17/17 05:28 Microcytosis Present (Not Present) A 03/17/17 05:28 Potassium 3.2 mEq/L (3.5-4.5) L 03/17/17 05:28 Glucose 110 mg/dL (70-99) H 03/17/17 05:28 Calcium 8.0 mg/dL (8.6-10.8) L 03/17/17 05:28 C-Reactive Protein 31 mg/L (Less than 5) H 03/17/17 15:24 Urine Clarity Cloudy (Clear) A 03/16/17 22:33 Urine Microscopic RBC 3-5 per hpf (0-3) H 03/16/17 22:33 Ur Squamous Epith Cells Many per lpf (None-Few) H 03/16/17 22:33 Consult Discharge Plan - Plan Referrals: Kev Raymond Jr, MD [Primary Care Provider] -
[2017-03-18 12:51] LABS: Basophils % 1.3 %; Hemoglobin 10.9 g/dL (11.5-15.4); Mean Platelet Volume 10.9 fL (9.4-12.4)
[2017-03-18 12:53] LABS: Eosinophils # 0.1 K/mcL (0.0-0.6); Hematocrit 33.9 % (35.3-44.9); Lymphocytes # 0.5 K/mcL (0.6-4.6); Lymphocytes % 31.8 %; Mean Corpuscular HGB Conc 32.2 g/dL (31.6-35.5); Mean Corpuscular Hemoglobin 29.2 pg (28.0-33.3); Mean Corpuscular Volume 90.9 fL (83.0-100.0); Monocytes # 0.2 K/mcL (0.0-1.3); Monocytes % 10.6 %; Neutrophils # 0.8 K/mcL (1.6-8.9); Platelet Count 148 K/mcL (140-400); Red Blood Count 3.73 M/mcL (3.82-4.97); Red Cell Distribution Width 13.6 % (11.5-14.5); Segmented Neutrophils % 52.3 %
[2017-03-18 13:05] LABS: Platelet Estimate Normal (Normal)
--- NOTE | 2017-03-18 13:29 | Internal Med Progress Note ---
Date of Encounter: 03/18/17 Time of Encounter: 13:27 - Assessment and plan (1) Neutropenia associated with infection Current Visit: Yes Status: Acute Assessment and plan: likely related to a viral infection monitor neutrophil count consider prophylactic antibiotics if keeps dropping or hematology consult (2) Viral infection Current Visit: Yes Status: Acute Assessment and plan: send resp infection panel (3) Otitis externa Current Visit: Yes Status: Acute Assessment and plan: start otic cipro on left ear Qualifiers: Otitis externa type: other infective Laterality: left Chronicity: acute Qualified Code(s): H60.392 - Other infective otitis externa, left ear (4) GERD (gastroesophageal reflux disease) Current Visit: No Status: Chronic Qualifiers: Esophagitis presence: esophagitis presence not specified Qualified Code(s) : K21.9 - Gastro-esophageal reflux disease without esophagitis (5) Hypothyroidism Current Visit: No Status: Chronic Qualifiers: Hypothyroidism type: acquired Qualified Code(s): E03.9 - Hypothyroidism, unspecified (6) Tobacco abuse Current Visit: No Status: Acute (7) Headache Current Visit: Yes Status: Acute Qualifiers: Headache type: unspecified Headache chronicity pattern: unspecified pattern Intractability: intractable Qualified Code(s): R51 - Headache - Subjective Interval history: feels very weak , denies CP or SOB, has a dry cough, no abdominal pain , no dysuria, has a headache, complains of left ear pain - Constitutional Vitals: Temp Pulse Resp BP Pulse Ox 97.8 F 64 16 117/73 96 03/18/17 06:30 03/18/17 06:30 03/18/17 06:30 03/18/17 06:30 03/18/17 06:30 General appearance: Present: A&O X 3 - Head Head exam: Present: atraumatic, normocephalic - Eye Eye exam: Present: PERRL, conjuntiva pink, sclera anicteric Pupils: Present: PERRL - Neck Neck exam general surgery: Present: supple, trachea midline. Absent: lymphadenopathy - Respiratory Respiratory exam: Present: CTAB. Absent: accessory muscle use, rales, rhonchi, wheezes - Cardiovascular Cardiovascular exam: Present: RRR, +S1, +S2. Absent: diastolic murmur, gallop, rubs, systolic murmur - GI/Abdominal GI/Abdominal exam: Present: normal bowel sounds, soft, no peritoneal signs. Absent: distended, tenderness - Extremities Exam Extremities exam: Present: warm, radial pulses palpable and symetrical. Absent : calf tenderness, cyanotic, pedal edema - Neurological Exam Neurological exam: Present: CN II-XII intact, oriented X3, no focal deficits. Absent: pronater drift, facial droop, speech deficit - Skin Skin exam: Present: dry, intact Additional comments: left ear external canal erythema Internal Medicine: Result - Labs CBC & Chem 7: 03/18/17 12:38 03/17/17 05:28 Labs: Short CBC 03/18/17 Range/Units 12:38 WBC 1.5 L (4.3-11.1) K/mcL Hgb 10.9 L (11.5-15.4) g/dL Hct 33.9 L (35.3-44.9) % Plt Count 148 (140-400) K/mcL Neutrophils # 0.8 L (1.6-8.9) K/mcL - Impressions Impressions Brain MRI 03/17/17 04:42 IMPRESSION: 1. No evidence of an acute infarct. 2. There are multifocal scattered nonspecific white matter lesions noted supratentorially. Potential etiologies would include early chronic microvascular white matter ischemic disease, demyelinating disease, vasculitis, and migraine headaches. D/ / 03/17/2017 13:23:40 Mick Olguin MD / [facility] Interpreting Provider: Mick Olguin MD Consult Discharge Plan - Plan Referrals: Kev Raymond Jr, MD [Primary Care Provider] -
[2017-03-18 13:52] LABS: BUN/Creatinine Ratio 7 (6-26); Blood Urea Nitrogen 5 mg/dL (7-20); Calcium 8.4 mg/dL (8.6-10.8); Carbon Dioxide 25 mEq/L (19-29); Chloride 110 mEq/L (98-109); Glucose 101 mg/dL (70-99); Osmolality,Calculated 289 (280-300); Sodium 141 mEq/L (136-145); eGFR For African Americans > 60 (> 60); eGFR For Non-African Americans > 60 (> 60)
[2017-03-18] MEDS: Ciprofloxacin/Dex *EAR* Susp 7.5 ML BOTTLE LEFT EAR SCH ×2 (15:10→22:27)
[2017-03-18 15:46] LABS: Adenovirus Not Detected (Not Detect); Bordetella Pertussis Not Detected (Not Detect); Chlamydophila pneumoniae Not Detected (Not Detect); Coronavirus 229E Not Detected (Not Detect); Coronavirus HKU1 Not Detected (Not Detect); Coronavirus NL63 Not Detected (Not Detect); Coronavirus OC43 Not Detected (Not Detect); Human Metapneumovirus Not Detected (Not Detect); Human Rhinovirus/Enterovirus Not Detected (Not Detect); Influenza A Subtype 2009 H1 Not Detected (Not Detect); Influenza A Untypeable Not Detected (Not Detect); Influenza B Not Detected (Not Detect); Mycoplasma pneumoniae Not Detected (Not Detect); Parainfluenza Virus 1 Not Detected (Not Detect); Parainfluenza Virus 2 Not Detected (Not Detect); Parainfluenza Virus 3 Not Detected (Not Detect); Parainfluenza Virus 4 Not Detected (Not Detect); Respiratory Syncytial Virus Not Detected (Not Detect)
[2017-03-19 04:42] LABS: HSV Source CSF
[2017-03-19 05:26] LABS: Eosinophils % 3.1 %; Hematocrit 34.3 % (35.3-44.9); Lymphocytes # 0.3 K/mcL (0.6-4.6); Lymphocytes % 27.1 %; Mean Corpuscular HGB Conc 32.1 g/dL (31.6-35.5); Mean Corpuscular Hemoglobin 28.8 pg (28.0-33.3); Mean Corpuscular Volume 89.8 fL (83.0-100.0); Mean Platelet Volume 11.3 fL (9.4-12.4); Monocytes # 0.1 K/mcL (0.0-1.3); Monocytes % 11.5 %; Neutrophils # 0.6 K/mcL (1.6-8.9); Platelet Count 144 K/mcL (140-400); Red Blood Count 3.82 M/mcL (3.82-4.97); Red Cell Distribution Width 13.5 % (11.5-14.5); Segmented Neutrophils % 57.3 %
[2017-03-19 05:39] LABS: Alanine Aminotransferase 28 Units/L (0-55); Albumin 2.8 g/dL (3.5-5.0); Albumin/Globulin Ratio 0.9 (1.1-2.2); Alkaline Phosphatase 78 Units/L (38-126); Aspartate Amino Transferase 28 Units/L (5-34); BUN/Creatinine Ratio 7 (6-26); Bilirubin,Total 0.8 mg/dL (0.2-1.2); Blood Urea Nitrogen 5 mg/dL (7-20); Calcium 8.3 mg/dL (8.6-10.8); Carbon Dioxide 26 mEq/L (19-29); Chloride 108 mEq/L (98-109); Globulin 3.1 g/dL (2.4-3.5); Glucose 106 mg/dL (70-99); Osmolality,Calculated 288 (280-300); Potassium 3.6 mEq/L (3.5-4.5); Sodium 140 mEq/L (136-145); Total Protein 5.9 g/dL (6.0-8.3); eGFR For African Americans > 60 (> 60); eGFR For Non-African Americans > 60 (> 60)
[2017-03-19 06:36] LABS: Platelet Estimate Slight Decrease (Normal)
[2017-03-19] MEDS: *HR* Heparin 5,000 UNIT/ML VIAL SQ SCH ×2 (06:55→16:56)
[2017-03-19] MEDS: Levothyroxine 25 MCG TABLET PO SCH (06:56)
[2017-03-19] MEDS: Ibuprofen 400 MG TABLET PO PRN ×2 (07:01→16:55)
--- NOTE | 2017-03-19 07:57 | Internal Med Progress Note ---
Date of Encounter: 03/19/17 Time of Encounter: 07:54 - Assessment and plan (1) Neutropenia associated with infection Current Visit: Yes Status: Acute Assessment and plan: likely related to a viral infection , consider other etiologies monitor neutrophil count consider switching antibiotics if keeps dropping or hematology consult May start cefepime if needed Ordered TSH, folate, B12 vitamin, Hematology oncology consulted [facility]AREK pending May place on neutropenic precautions Consider bone marrow biopsy (2) Viral infection Current Visit: Yes Status: Acute Assessment and plan: resp infection panel negative (3) Otitis externa Current Visit: Yes Status: Acute Assessment and plan: Continue otic cipro day 2 on left ear Qualifiers: Otitis externa type: other infective Laterality: left Chronicity: acute Qualified Code(s): H60.392 - Other infective otitis externa, left ear (4) GERD (gastroesophageal reflux disease) Current Visit: No Status: Chronic Qualifiers: Esophagitis presence: esophagitis presence not specified Qualified Code(s) : K21.9 - Gastro-esophageal reflux disease without esophagitis (5) Hypothyroidism Current Visit: No Status: Chronic Qualifiers: Hypothyroidism type: acquired Qualified Code(s): E03.9 - Hypothyroidism, unspecified (6) Tobacco abuse Current Visit: No Status: Acute (7) Headache Current Visit: Yes Status: Acute Qualifiers: Headache type: unspecified Headache chronicity pattern: unspecified pattern Intractability: intractable Qualified Code(s): R51 - Headache - Subjective Interval history: Complains of pain over her sinuses. feels very , denies CP or SOB, has a dry cough, no abdominal pain , no dysuria , has a headache, complains of left ear pain - Constitutional Vitals: Temp Pulse Resp BP Pulse Ox 99.0 F 91 16 114/80 97 03/19/17 06:45 03/19/17 06:45 03/19/17 06:45 03/19/17 06:45 03/19/17 06:45 General appearance: Present: A&O X 3 - Head Head exam: Present: atraumatic, normocephalic - Eye Eye exam: Present: PERRL, conjuntiva pink, sclera anicteric Pupils: Present: PERRL - Neck Neck exam general surgery: Present: supple, trachea midline. Absent: lymphadenopathy - Respiratory Respiratory exam: Present: CTAB. Absent: accessory muscle use, rales, rhonchi, wheezes - Cardiovascular Cardiovascular exam: Present: RRR, +S1, +S2. Absent: diastolic murmur, gallop, rubs, systolic murmur - GI/Abdominal GI/Abdominal exam: Present: normal bowel sounds, soft, no peritoneal signs. Absent: distended, tenderness - Extremities Exam Extremities exam: Present: warm, radial pulses palpable and symetrical. Absent : calf tenderness, cyanotic, pedal edema - Neurological Exam Neurological exam: Present: CN II-XII intact, oriented X3, no focal deficits. Absent: pronater drift, facial droop, speech deficit - Skin Skin exam: Present: dry. Absent: intact (erythema over left ear canal is improving) Internal Medicine: Result - Labs CBC & Chem 7: 03/19/17 04:31 03/19/17 04:31 Labs: Short CBC 03/19/17 Range/Units 04:31 WBC 1.0 L* (4.3-11.1) K/mcL Hgb 11.0 L (11.5-15.4) g/dL Hct 34.3 L (35.3-44.9) % Plt Count 144 (140-400) K/mcL Neutrophils # 0.6 L (1.6-8.9) K/mcL BMP 03/19/17 04:31 Sodium 140 Potassium 3.6 Chloride 108 Carbon Dioxide 26 BUN 5 L Creatinine 0.75 Glucose 106 H Calcium 8.3 L Liver Function 03/19/17 Range/Units 04:31 Total Bilirubin 0.8 (0.2-1.2) mg/dL AST 28 (5-34) Units/L ALT 28 (0-55) Units/L Alkaline Phosphatase 78 (38-126) Units/L Albumin 2.8 L D (3.5-5.0) g/dL Consult Discharge Plan - Plan Referrals: Kev Raymond Jr, MD [Primary Care Provider] -
[2017-03-19] MEDS: Ciprofloxacin/Dex *EAR* Susp 7.5 ML BOTTLE LEFT EAR SCH ×2 (09:32→19:37)
[2017-03-19 09:38] LABS: Folate 14.7 ng/mL (7.0-31.4)
[2017-03-19] MEDS: Acetaminophen 325 MG TABLET PO PRN (09:42)
[2017-03-19 10:49] LABS: EBV Ab(Viral Capsid Ag)VCA-IgM <10.0 U/mL (0.0-43.9)
--- NOTE | 2017-03-19 12:22 | Oncology Inp Consult Note ---
Date of Encounter: 03/21/17 Time of Encounter: 12:21 - Data of Consult Patient: new to practice Consult date: 03/19/17 Requesting Physician: Ronnie Wu Primary Care Provider: Kev Raymond Jr, MD - Consult Narrative Reason for consult: Unexplained leukopenia History of present illness: Ms. Fletcher is a 42 year old woman seen in consultation regarding unexplained, isolated neutropenia. She recently presented with a fever of 1-2.6 and a syncopal episode associated with lethargy and headaches and has undergone extensive evaluation including spinal tap etc. all of which have returned unremarkable. Pancultures and negative to date including CSF culture. In spite of that, she is on empiric antibiotic coverage with Rocephin. Since her hospitalization, she has been noted with decline in WBC count and most recent CBC shows a WBC of 1000 and an ANC of 600. Hematology is consulted for further evaluation of her unexplained, worsening neutropenia. Rest of his CBC is negative for additional cytopenias. Dr. Mirza was kind enough to discuss patients case with me regarding reason for consultation. Patient seen and examined at bedside with moderate (Irene) present who provided additional information. I reviewed her chart for details of ongoing care by hospital team which is much appreciated. Her last febrile episode was on 03/16/17 with a temperature of 100.9. Patient has had does not have any prior diagnosis of hematologic disorder or malignancy. She has not had any recent constitutional symptoms such as fevers, chills, weight appetite changes, night sweats, aquagenic pruritus etc. leading up to her hospitalization. She has not recently started any new medications and her current meds include Protonix, estradiol, Synthroid prescribed through her primary care with Dr. Raymond. She has not had any recent travel she contacts and denies any significant exposure history. She does not use alcohol, tobacco or recreational drugs. 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 She does not have any significant medical comorbidities and reports remote hysterectomy for benign indication. Her workup so far include: CBC with no additional cytopenias besides an isolated neutropenia. WBC count was completely normal prior to 03/16/17. Metabolic panel is that she will and the significant liver, kidney, thyroid dysfunction. No hematinic deficiencies based on most recent B12 and folate level from earlier today. Have viral serologies show quite high titers of EBV which may indicate prior exposure such as mononucleosis although I am not sure what to make of her high titers. Previous testing showed immune status to hepatitis B, rubella, VZV. Her last imaging studies on record including CT chest, abdomen, pelvis last October were all negative for acute abnormality and no indication of underlying malignancy. She is up-to-date on age-appropriate health maintenance with her last breast imaging from 12/30/16 being unremarkable BI-RADS Category 2. Rest of past medical, surgical, family, social history detailed below and verified with patient today. Review of systems: 12 point review of systems performed with patient and positive findings noted in history of present illness. All other systems are negative: Physical exam: Vital Signs Temp 98.3 F 03/19/17 15:19 Pulse 73 03/19/17 15:19 Resp 16 03/19/17 15:19 BP 123/81 03/19/17 15:19 Pulse Ox 98 03/19/17 15:19 GENERAL: Alert and oriented, [default value] appearing. Mental Status: Affect appropriate for circumstances HEENT: Sclerae anicteric. No mucositis or thrush. No other oral or pharyngeal lesions or erythema. Skin: No rashes or petechiae. No evidence of skin malignancy Lymph nodes: No cervical, supraclavicular, axillary, or inguinal adenopathy. Lungs: Clear to auscultation bilaterally. Clear to percussion bilaterally. Cardiovascular: Regular rate and rhythm. No gallops, murmurs, or rubs. Abdomen: Soft, nontender; No organomegaly or masses palpable. Extremities: No edema. No calf swelling or tenderness. No joint deformity. Neurologic: Alert, normal gait; no focal weakness or sensory abnormalities. Results: Laboratory Last Values WBC 1.0 K/mcL (4.3-11.1) L* 03/19/17 04:31 RBC 3.82 M/mcL (3.82-4.97) 03/19/17 04:31 Hgb 11.0 g/dL (11.5-15.4) L 03/19/17 04:31 Hct 34.3 % (35.3-44.9) L 03/19/17 04:31 MCV 89.8 fL (83.0-100.0) 03/19/17 04:31 MCH 28.8 pg (28.0-33.3) 03/19/17 04:31 MCHC 32.1 g/dL (31.6-35.5) 03/19/17 04:31 RDW 13.5 % (11.5-14.5) 03/19/17 04:31 Plt Count 144 K/mcL (140-400) 03/19/17 04:31 MPV 11.3 fL (9.4-12.4) 03/19/17 04:31 Immature Gran % 0.0 % (0-4) 03/19/17 04:31 Seg Neutrophils % 57.3 % 03/19/17 04:31 Lymphocytes % 27.1 % 03/19/17 04:31 Monocytes % 11.5 % 03/19/17 04:31 Eosinophils % 3.1 % 03/19/17 04:31 Basophils % 1.0 % 03/19/17 04:31 Neutrophils # 0.6 K/mcL (1.6-8.9) L 03/19/17 04:31 Lymphocytes # 0.3 K/mcL (0.6-4.6) L 03/19/17 04:31 Monocytes # 0.1 K/mcL (0.0-1.3) 03/19/17 04:31 Eosinophils # 0.0 K/mcL (0.0-0.6) 03/19/17 04:31 Basophils # 0.0 K/mcL (0.0-0.2) 03/19/17 04:31 Platelet Estimate Slight Decrease (Normal) L 03/19/17 04:31 Microcytosis Present (Not Present) A 03/17/17 05:28 ESR 10 mm/hr (0-15) 03/17/17 15:24 Sodium 140 mEq/L (136-145) 03/19/17 04:31 Potassium 3.6 mEq/L (3.5-4.5) 03/19/17 04:31 Chloride 108 mEq/L (98-109) 03/19/17 04:31 Carbon Dioxide 26 mEq/L (19-29) 03/19/17 04:31 BUN 5 mg/dL (7-20) L 03/19/17 04:31 Creatinine 0.75 mg/dL (0.57-1.11) 03/19/17 04:31 Est GFR ( Amer) > 60 (> 60) 03/19/17 04:31 Est GFR (Non-Af Amer) > 60 (> 60) 03/19/17 04:31 BUN/Creatinine Ratio 7 (6-26) 03/19/17 04:31 Glucose 106 mg/dL (70-99) H 03/19/17 04:31 Calculated Osmolality 288 (280-300) 03/19/17 04:31 Lactic Acid 1.3 mmol/L (0.5-2.2) 03/16/17 20:56 Calcium 8.3 mg/dL (8.6-10.8) L 03/19/17 04:31 Total Bilirubin 0.8 mg/dL (0.2-1.2) 03/19/17 04:31 AST 28 Units/L (5-34) 03/19/17 04:31 ALT 28 Units/L (0-55) 03/19/17 04:31 Alkaline Phosphatase 78 Units/L (38-126) 03/19/17 04:31 C-Reactive Protein 31 mg/L (Less than 5) H 03/17/17 15:24 Serum Total Protein 5.9 g/dL (6.0-8.3) L 03/19/17 04:31 Albumin 2.8 g/dL (3.5-5.0) L D 03/19/17 04:31 Globulin 3.1 g/dL (2.4-3.5) 03/19/17 04:31 Albumin/Globulin Ratio 0.9 (1.1-2.2) L 03/19/17 04:31 Vitamin B12 810 pg/mL (213-816) 03/19/17 07:52 Folate 14.7 ng/mL (7.0-31.4) 03/19/17 07:52 TSH 1.920 mcIU/mL (0.350-4.840) 03/19/17 04:31 Free T4 0.81 ng/dl (0.70-1.48) 03/19/17 04:31 Urine Color Yellow (Yellow) 03/16/17 22:33 Urine Clarity Cloudy (Clear) A 03/16/17 22:33 Urine pH 7.5 pH Units (5.0-8.0) 03/16/17 22:33 Ur Specific [place] 1.021 (1.010-1.025) 03/16/17: Urine Protein Negative mg/dL (Neg-Trace) 03/16/17: Urine Glucose (UA) Normal mg/dL (Normal) 03/16/17: Urine Ketones Negative mg/dL (Negative) 03/16/17: Urine Blood Negative (Negative) 03/16/17: Urine Nitrite Negative (Negative) 03/16/17: Urine Bilirubin Negative (Negative) 03/16/17: Urine Urobilinogen Normal mg/dL (Normal) 03/16/17: Ur Leukocyte Esterase Negative (Negative) 03/16/17: Urine Microscopic RBC 3-5 per hpf (0-3) H 03/16/17: Urine Microscopic WBC 0-3 per hpf (0-3) 03/16/17: Ur Squamous Epith Cells Many per lpf (None-Few) H 03/16/17: Urine Bacteria None Seen per hpf (None-Few) 03/16/17 Hyaline Casts None Seen per lpf (None-Few) 03/16/17: Ur Culture Indicated? NO (NO) 03/16/17: CSF Volume 4.0 mL 03/16/17 23:00 CSF Appearance Clear (Clear) 03/16/17 23:00 CSF Color Colorless (Colorless) 03/16/17 23:00 CSF RBC < 0.002 M/mcL (0.000-0.002) 03/16/17 23:00 CSF Tot Nucleated Cells < 3 TNC/mcL (0-5) 03/16/17 23:00 CSF Seg Neutrophils TNP 03/16/17 23:00 CSF Band Neutrophils % TNP 03/16/17 23:00 CSF Lymphocytes % TNP 03/16/17 23:00 CSF Monocytes % TNP 03/16/17 23:00 CSF Eosinophils % TNP 03/16/17 23:00 CSF Basophils % TNP 03/16/17 23:00 CSF Other Cells % TNP 03/16/17 23:00 CSF Glucose 59 mg/dL (40-70) 03/16/17 23:00 CSF Xanth Comm Not Observed (Not Observe) 03/16/17 23:00 CSF Total Protein 43 mg/dL (15-45) 03/16/17 23:00 Chlamy pneumoniae PCR Not Detected (Not Detect) 03/18/17 14:10 Adenovirus (PCR) Not Detected (Not Detect) 03/18/17 14:10 B. pertussis DNA (PCR) Not Detected (Not Detect) 03/18/17 14:10 Coronavirus OC43 (PCR) Not Detected (Not Detect) 03/18/17 14:10 Coronavirus HKU1 (PCR) Not Detected (Not Detect) 03/18/17 14:10 Coronavirus 229E (PCR) Not Detected (Not Detect) 03/18/17 14:10 Coronavirus NL63 (PCR) Not Detected (Not Detect) 03/18/17 14:10 EBV Capsid Ag IgG Ab 616.0 U/mL (0.0-21.9) H 03/17/17 15:24 EBV Capsid Ag IgM Ab <10.0 U/mL (0.0-43.9) 03/17/17 15:24 EBV Early Antigen IgG 39.2 U/mL (0.0-10.9) H 03/17/17 15:24 EBV Nuclear Ag Ab Titer >600.0 U/mL (0.0-21.9) H 03/17/17 15:24 Herpes Simplex Source CSF 03/16/17 23:00 Herpes Simplex DNA PCR NOT DETECTED 03/16/17 23:00 Human Metapneumovirus Not Detected (Not Detect) 03/18/17 14:10 Infectious [place]o Assay Negative (Negative) 03/18/17 13:46 Influenza A (H1) PCR Not Detected (Not Detect) 03/18/17 14:10 Influ A (H1N1/09) PCR Not Detected (Not Detect) 03/18/17 14:10 Influenza A (H3) PCR Not Detected (Not Detect) 03/18/17 14:10 Influenza A Untype (PCR) Not Detected (Not Detect) 03/18/17 14:10 Influenza Type B (PCR) Not Detected (Not Detect) 03/18/17 14:10 M.pneumoniae DNA (PCR) Not Detected (Not Detect) 03/18/17 14:10 Parainfluenza 1 (PCR) Not Detected (Not Detect) 03/18/17 14:10 Parainfluenza 2 (PCR) Not Detected (Not Detect) 03/18/17 14:10 Parainfluenza 3 (PCR) Not Detected (Not Detect) 03/18/17 14:10 Parainfluenza 4 (PCR) Not Detected (Not Detect) 03/18/17 14:10 RSV (PCR) Not Detected (Not Detect) 03/18/17 14:10 Entero/Rhino (PCR) Not Detected (Not Detect) 03/18/17 14:10 Radiographic studies: I personally reviewed and interpreted patient's most recent imaging studies dated 11/01/16-03/16/17. I discussed the findings with the patient today. Chest X-Ray 03/16/17 20:15 IMPRESSION: 1. No acute radiographic finding in the chest. D/ / Atul Lara MD / Atul Lara MD Interpreting Provider: Atul Lara MD Head CT 03/16/17 22:14 IMPRESSION: No acute intracranial abnormality. D/ / Barrett Bruner MD / Barrett Bruner MD Interpreting Provider: Barrett Bruner MD Brain MRI 03/17/17 04:42 IMPRESSION: 1. No evidence of an acute infarct. 2. There are multifocal scattered nonspecific white matter lesions noted supratentorially. Potential etiologies would include early chronic microvascular white matter ischemic disease, demyelinating disease, vasculitis, and migraine headaches. D/ / 03/17/2017 13:23:40 Mick Olguin MD / johnathon Interpreting Provider: Mick Olguin MD Impression/recommendations: Unexplained, isolated neutropenia: I had a detailed discussion with the patient and her mother today regarding diagnostic considerations) incision with isolated neutropenia including hematinic deficiencies, metabolic derangement such as liver, kidney, thyroid dysfunction, infection including viral syndromes, hypersplenism and the possibility of an underlying primary hematologic disorder including malignancy. Her extensive workup has returned unremarkable to this point and while a viral syndrome is a consideration, I am concerned given her relatively young age about the possibility of an underlying hematologic disorder. Based on above, I recommended that we go ahead and obtain a bone marrow biopsy. She does not recall prior HIV testing and even though she denies any risk factors, I think is reasonable to complete HIV and hepatitis C testing for completeness since on diagnosed HIV or hepatitis can be basis for isolated neutropenia. We will plan on getting a bone marrow biopsy done by IR after the weekend since both iron pathology are not available for the weekend. In the interim, recommend continued supportive management as you are doing including: Empiric antibiotics. She is evidently been on Rocephin for the last 3 days and if she develops further febrile episodes or leukopenia is persistent beyond the next 24th, we will broaden coverage for gram negatives. If she develops a febrile episode or ANC less than 500, we will start Neupogen 300 g subcu daily. She understands that is less preferred since it would create difficulty interpreting a bone marrow exam. Otherwise, we will recommend to continue supportive measures as you doing and we will follow the patient has lung with you. If she improves her counts prior to bone marrow exam, I think we can cancel the bone marrow biopsy and we will monitor her counts for complete recovery as an outpatient. After a bone marrow exam, if she remains afebrile without other symptoms, she can be discharged and I will arrange short interval outpatient follow-up for further recommendation based on bone results. We'll follow the patient along side you during this hospitalization but please do not hesitate to call regarding interval hematologic questions as they arise. Thank you for your excellent ongoing care for allowing us to see her while in- house. This report was created using voice recognition software and may contain errors. It was signed but not edited to expedite communication. Corrections will be made in a separate addendum as needed. Past Med Surg Social Fam HX - Past Medical History Medical history: GERD, thyroid disease Psychiatric history: no psych history - Past Surgical History Surgical History: hysterectomy - Social History Smoking Status: Never smoker Smokeless Tobacco Status: No Alcohol use: none Drug use: none - Family History Father Living Status: Still Living Hx Family Cardiac Disorders: Yes (PAD, HTN) Hx Family Endocrine Disorder: Yes (DM) Medications and Allergies Estradiol 1 mg PO HS 05/19/16 [History] Levothyroxine [Synthroid] 25 mcg PO DAILY 05/19/16 [History] Pantoprazole Sodium [Protonix] 40 mg PO DAILY 07/07/16 [History] Ibuprofen [Motrin] 200 mg PO Q6HR PRN 10/31/16 [History] Loratadine [Allergy Relief] 10 mg PO DAILY PRN 10/31/16 [History] Estradiol [Estrace] 1 appl VG QWEEK 12/16/16 [History] Loperamide [Imodium] 2 mg PO TID PRN 12/16/16 [History] Allergies No Known Allergies Allergy (Verified 03/16/17 20:09) Oncology - Exam - Constitutional Vitals: Temp Pulse Resp BP Pulse Ox 98.3 F 82 16 121/84 97 03/19/17 10:56 03/19/17 10:56 03/19/17 10:56 03/19/17 10:56 03/19/17 10:56 Oncology - Results - Labs Labs: Short CBC 03/19/17 Range/Units 04:31 WBC 1.0 L* (4.3-11.1) K/mcL Hgb 11.0 L (11.5-15.4) g/dL Hct 34.3 L (35.3-44.9) % Plt Count 144 (140-400) K/mcL Neutrophils # 0.6 L (1.6-8.9) K/mcL BMP 03/19/17 04:31 Sodium 140 Potassium 3.6 Chloride 108 Carbon Dioxide 26 BUN 5 L Creatinine 0.75 Glucose 106 H Calcium 8.3 L Liver Function 03/19/17 Range/Units 04:31 Total Bilirubin 0.8 (0.2-1.2) mg/dL AST 28 (5-34) Units/L ALT 28 (0-55) Units/L Alkaline Phosphatase 78 (38-126) Units/L Albumin 2.8 L D (3.5-5.0) g/dL Consult Discharge Plan - Plan Referrals: Kev Raymond Jr, MD [Primary Care Provider] -
[2017-03-20 04:52] LABS: Hematocrit 35.5 % (35.3-44.9); Hemoglobin 11.7 g/dL (11.5-15.4); Mean Corpuscular Hemoglobin 29.3 pg (28.0-33.3); Mean Corpuscular Volume 88.8 fL (83.0-100.0); Mean Platelet Volume 11.5 fL (9.4-12.4); Monocytes # 0.2 K/mcL (0.0-1.3); Platelet Count 137 K/mcL (140-400); Red Cell Distribution Width 13.4 % (11.5-14.5)
[2017-03-20 05:01] LABS: BUN/Creatinine Ratio 8 (6-26); Blood Urea Nitrogen 6 mg/dL (7-20); Calcium 8.4 mg/dL (8.6-10.8); Carbon Dioxide 26 mEq/L (19-29); Chloride 107 mEq/L (98-109); Glucose 85 mg/dL (70-99); Osmolality,Calculated 289 (280-300); Potassium 3.9 mEq/L (3.5-4.5); Sodium 141 mEq/L (136-145); eGFR For African Americans > 60 (> 60); eGFR For Non-African Americans > 60 (> 60)
[2017-03-20 05:19] LABS: Eosinophils # 0.2 K/mcL (0.0-0.6); Neutrophils # 0.3 K/mcL (1.6-8.9)
[2017-03-20 05:20] LABS: Platelet Estimate Slight Decrease (Normal)
[2017-03-20] MEDS: Levothyroxine 25 MCG TABLET PO SCH (06:59)
[2017-03-20] MEDS: *HR* Heparin 5,000 UNIT/ML VIAL SQ SCH ×2 (07:03→17:03)
[2017-03-20] MEDS ORDERED: Fluconazole 100 MG TABLET PO ONE (08:28)
--- NOTE | 2017-03-20 08:32 | Internal Med Progress Note ---
Date of Encounter: 03/20/17 Time of Encounter: 08:29 - Assessment and plan (1) Neutropenia associated with infection Current Visit: Yes Status: Acute Assessment and plan: Severe neutropenia likely related to a viral infection , consider other etiologies The fact that Javier-Blas virus early antigen IgG is high is suggestive that the virus is actively replicating although it probably is not a new infection as the IgM is negative Schedule a bone marrow biopsy by interventional radiology for the morning monitor neutrophil count Switch Rocephin to cefepime IV Neutropenic precautions, neutropenic diet hematology consult MAREK pending (2) Viral infection Current Visit: Yes Status: Acute Assessment and plan: resp infection panel negative (3) Otitis externa Current Visit: Yes Status: Acute Assessment and plan: Continue otic cipro day 3 on left ear Qualifiers: Otitis externa type: other infective Laterality: left Chronicity: acute Qualified Code(s): H60.392 - Other infective otitis externa, left ear (4) GERD (gastroesophageal reflux disease) Current Visit: No Status: Chronic Qualifiers: Esophagitis presence: esophagitis presence not specified Qualified Code(s) : K21.9 - Gastro-esophageal reflux disease without esophagitis (5) Hypothyroidism Current Visit: No Status: Chronic Qualifiers: Hypothyroidism type: acquired Qualified Code(s): E03.9 - Hypothyroidism, unspecified (6) Tobacco abuse Current Visit: No Status: Acute Assessment and plan: Smoking cessation counseling given for 5 minutes. Nicotine patch offered (7) Headache Current Visit: Yes Status: Acute Qualifiers: Headache type: unspecified Headache chronicity pattern: unspecified pattern Intractability: intractable Qualified Code(s): R51 - Headache (8) Sinusitis Current Visit: Yes Status: Acute Qualifiers: Sinusitis location: maxillary Chronicity: acute Recurrence: recurrent Qualified Code(s): J01.01 - Acute recurrent maxillary sinusitis - Subjective Interval history: Complains of pain over her sinuses. Left ear pain has improved slightly. feels weak , denies CP or SOB, has a dry cough, no abdominal pain , no dysuria , has a headache. - Constitutional Vitals: Temp Pulse Resp BP Pulse Ox 98.2 F 75 16 125/86 95 03/20/17 07:41 03/20/17 07:41 03/20/17 07:41 03/20/17 07:41 03/20/17 07:41 General appearance: Present: A&O X 3 - Head Head exam: Present: atraumatic, normocephalic - Eye Eye exam: Present: PERRL, conjuntiva pink, sclera anicteric Pupils: Present: PERRL - Neck Neck exam general surgery: Present: supple, trachea midline. Absent: lymphadenopathy - Respiratory Respiratory exam: Present: CTAB. Absent: accessory muscle use, rales, rhonchi, wheezes - Cardiovascular Cardiovascular exam: Present: RRR, +S1, +S2. Absent: diastolic murmur, gallop, rubs, systolic murmur - GI/Abdominal GI/Abdominal exam: Present: normal bowel sounds, soft, no peritoneal signs. Absent: distended, tenderness - Extremities Exam Extremities exam: Present: warm, radial pulses palpable and symetrical. Absent : calf tenderness, cyanotic, pedal edema - Neurological Exam Neurological exam: Present: CN II-XII intact, oriented X3, no focal deficits. Absent: pronater drift, facial droop, speech deficit Additional comments: Maxillar sinus tenderness bilaterally, left ear canal is less erythematous - Skin Skin exam: Present: dry, intact Internal Medicine: Result - Labs CBC & Chem 7: 03/20/17 03:44 03/20/17 03:44 Labs: Short CBC 03/20/17 Range/Units 03:44 WBC 1.6 L D (4.3-11.1) K/mcL Hgb 11.7 (11.5-15.4) g/dL Hct 35.5 (35.3-44.9) % Plt Count 137 L (140-400) K/mcL Neutrophils # 0.3 L (1.6-8.9) K/mcL BMP 03/20/17 03:44 Sodium 141 Potassium 3.9 Chloride 107 Carbon Dioxide 26 BUN 6 L Creatinine 0.71 Glucose 85 Calcium 8.4 L Consult Discharge Plan - Plan Referrals: Kev Raymond Jr, MD [Primary Care Provider] -
[2017-03-20] MEDS: Ciprofloxacin/Dex *EAR* Susp 7.5 ML BOTTLE LEFT EAR SCH ×2 (08:47→19:49)
[2017-03-20] MEDS: Clotrimazole Vag CRM 45 GM TUBE VG SCH ×2 (08:51→19:49)
[2017-03-20 09:58] LABS: ANA IgG by ELISA NONE DETECTED (None Detected)
[2017-03-20] MEDS: Ibuprofen 400 MG TABLET PO PRN (13:13)
[2017-03-20] MEDS: Cefepime HCl 2,000 MG in D5% in Water (Mini-Bag+) 100 ML IVPB SCH ×2 (15:13→23:44)
[2017-03-20] MEDS: Acetaminophen 325 MG TABLET PO PRN (15:21)
[2017-03-21 04:26] LABS: Hematocrit 35.9 % (35.3-44.9); Mean Corpuscular HGB Conc 33.4 g/dL (31.6-35.5); Mean Corpuscular Hemoglobin 29.6 pg (28.0-33.3); Mean Corpuscular Volume 88.4 fL (83.0-100.0); Mean Platelet Volume 11.4 fL (9.4-12.4); Monocytes # 0.2 K/mcL (0.0-1.3); Platelet Count 157 K/mcL (140-400); Red Blood Count 4.06 M/mcL (3.82-4.97); Red Cell Distribution Width 13.2 % (11.5-14.5)
[2017-03-21 04:48] LABS: BUN/Creatinine Ratio 13 (6-26); Blood Urea Nitrogen 9 mg/dL (7-20); Calcium 8.6 mg/dL (8.6-10.8); Carbon Dioxide 26 mEq/L (19-29); Chloride 105 mEq/L (98-109); Glucose 93 mg/dL (70-99); Osmolality,Calculated 284 (280-300); Potassium 3.6 mEq/L (3.5-4.5); Sodium 138 mEq/L (136-145); eGFR For African Americans > 60 (> 60); eGFR For Non-African Americans > 60 (> 60)
[2017-03-21 05:24] LABS: Basophils # 0.1 K/mcL (0.0-0.2); Eosinophils # 0.1 K/mcL (0.0-0.6); Lymphocytes # 2.3 K/mcL (0.6-4.6); Neutrophils # 0.4 K/mcL (1.6-8.9); Platelet Estimate Normal (Normal); Reactive Lymphocytes Present (Not Present)
[2017-03-21 05:41] LABS: Smudge Cells Present (Not Present)
[2017-03-21] MEDS: *HR* Heparin 5,000 UNIT/ML VIAL SQ SCH ×2 (05:51→17:08)
[2017-03-21] MEDS: Levothyroxine 25 MCG TABLET PO SCH (05:51)
[2017-03-21] MEDS: Ibuprofen 400 MG TABLET PO PRN ×2 (05:54→19:29)
--- NOTE | 2017-03-21 08:17 | Oncology Inp Progress Note ---
Date of Encounter: 03/21/17 Time of Encounter: 08:12 Oncology: Subj Interval history: History of present illness: Patient seen and examined at bedside. Chart reviewed for interval details and appreciate ongoing management of her hospital team. She is doing well this morning. No new physical complaints. Afebrile. No other new issues. Review of systems: 12 point review of systems as noted above.All other systems are negative: Physical exam: Vital Signs Temp 98.2 F 03/21/17 03:19 Pulse 51 03/21/17 03:19 Resp 14 03/21/17 03:19 BP 111/71 03/21/17 03:19 Pulse Ox 94 03/21/17 03:19 GENERAL: Alert and oriented, lethargic appearing. Mental Status: Affect appropriate for circumstances Skin: No rashes or petechiae. No evidence of skin malignancy Extremities: No edema. No calf swelling or tenderness. No joint deformity. Neurologic: Global weakness but no focal sensorimotor abnormalities. Results: Laboratory Last Values WBC 3.0 K/mcL (4.3-11.1) L D 03/21/17 03:42 RBC 4.06 M/mcL (3.82-4.97) 03/21/17 03:42 Hgb 12.0 g/dL (11.5-15.4) 03/21/17 03:42 Hct 35.9 % (35.3-44.9) 03/21/17 03:42 MCV 88.4 fL (83.0-100.0) 03/21/17 03:42 MCH 29.6 pg (28.0-33.3) 03/21/17 03:42 MCHC 33.4 g/dL (31.6-35.5) 03/21/17 03:42 RDW 13.2 % (11.5-14.5) 03/21/17 03:42 Plt Count 157 K/mcL (140-400) 03/21/17 03:42 MPV 11.4 fL (9.4-12.4) 03/21/17 03:42 Immature Gran % 0.0 % (0-4) 03/19/17 04:31 Seg Neutrophils % 12.0 % 03/21/17 03:42 Band Neutrophils % 6.0 % (0-4) H 03/20/17 03:44 Lymphocytes % 76.0 % 03/21/17 03:42 Monocytes % 8.0 % 03/21/17 03:42 Eosinophils % 2.0 % 03/21/17 03:42 Basophils % 2.0 % 03/21/17 03:42 Neutrophils # 0.4 K/mcL (1.6-8.9) L 03/21/17 03:42 Lymphocytes # 2.3 K/mcL (0.6-4.6) 03/21/17 03:42 Monocytes # 0.2 K/mcL (0.0-1.3) 03/21/17 03:42 Eosinophils # 0.1 K/mcL (0.0-0.6) 03/21/17 03:42 Basophils # 0.1 K/mcL (0.0-0.2) 03/21/17 03:42 Reactive Lymphocytes Present (Not Present) A 03/21/17 03:42 Smudge Cells Present (Not Present) A 03/21/17 03:42 Platelet Estimate Normal (Normal) 03/21/17 03:42 Microcytosis Present (Not Present) A 03/17/17 05:28 ESR 10 mm/hr (0-15) 03/17/17 15:24 Sodium 138 mEq/L (136-145) 03/21/17 03:42 Potassium 3.6 mEq/L (3.5-4.5) 03/21/17 03:42 Chloride 105 mEq/L (98-109) 03/21/17 03:42 Carbon Dioxide 26 mEq/L (19-29) 03/21/17 03:42 BUN 9 mg/dL (7-20) 03/21/17 03:42 Creatinine 0.72 mg/dL (0.57-1.11) 03/21/17 03:42 Est GFR ( Amer) > 60 (> 60) 03/21/17 03:42 Est GFR (Non-Af Amer) > 60 (> 60) 03/21/17 03:42 BUN/Creatinine Ratio 13 (6-26) 03/21/17 03:42 Glucose 93 mg/dL (70-99) 03/21/17 03:42 Calculated Osmolality 284 (280-300) 03/21/17 03:42 Lactic Acid 1.3 mmol/L (0.5-2.2) 03/16/17 20:56 Calcium 8.6 mg/dL (8.6-10.8) 03/21/17 03:42 Total Bilirubin 0.8 mg/dL (0.2-1.2) 03/19/17 04:31 AST 28 Units/L (5-34) 03/19/17 04:31 ALT 28 Units/L (0-55) 03/19/17 04:31 Alkaline Phosphatase 78 Units/L (38-126) 03/19/17 04:31 C-Reactive Protein 31 mg/L (Less than 5) H 03/17/17 15:24 Serum Total Protein 5.9 g/dL (6.0-8.3) L 03/19/17 04:31 Albumin 2.8 g/dL (3.5-5.0) L D 03/19/17 04:31 Globulin 3.1 g/dL (2.4-3.5) 03/19/17 04:31 Albumin/Globulin Ratio 0.9 (1.1-2.2) L 03/19/17 04:31 Vitamin B12 810 pg/mL (213-816) 03/19/17 07:52 Folate 14.7 ng/mL (7.0-31.4) 03/19/17 07:52 TSH 1.920 mcIU/mL (0.350-4.840) 03/19/17 04:31 Free T4 0.81 ng/dl (0.70-1.48) 03/19/17 04:31 Urine Color Yellow (Yellow) 03/16/17 22:33 Urine Clarity Cloudy (Clear) A 03/16/17 22: Urine pH 7.5 pH Units (5.0-8.0) 03/16/17 22:33 Ur Specific [place] 1.021 (1.010-1.025) 03/16/17 22: Urine Protein Negative mg/dL (Neg-Trace) 03/16/17: Urine Glucose (UA) Normal mg/dL (Normal) 03/16/17 22:33 Urine Ketones Negative mg/dL (Negative) 03/16/17 22:33 Urine Blood Negative (Negative) 03/16/17 22: Urine Nitrite Negative (Negative) 03/16/17 22: Urine Bilirubin Negative (Negative) 03/16/17 22:33 Urine Urobilinogen Normal mg/dL (Normal) 03/16/17 22:33 Ur Leukocyte Esterase Negative (Negative) 03/16/17 22:33 Urine Microscopic RBC 3-5 per hpf (0-3) H 03/16/17 22:33 Urine Microscopic WBC 0-3 per hpf (0-3) 03/16/17 22:33 Ur Squamous Epith Cells Many per lpf (None-Few) H 03/16/17 22:33 Urine Bacteria None Seen per hpf (None-Few) 03/16/17 22:33 Hyaline Casts None Seen per lpf (None-Few) 03/16/17 22:33 Ur Culture Indicated? NO (NO) 03/16/17 22:33 CSF Volume 4.0 mL 03/16/17 23:00 CSF Appearance Clear (Clear) 03/16/17 23:00 CSF Color Colorless (Colorless) 03/16/17 23:00 CSF RBC < 0.002 M/mcL (0.000-0.002) 03/16/17 23:00 CSF Tot Nucleated Cells < 3 TNC/mcL (0-5) 03/16/17 23:00 CSF Seg Neutrophils TNP 03/16/17 23:00 CSF Band Neutrophils % TNP 03/16/17 23:00 CSF Lymphocytes % TNP 03/16/17 23:00 CSF Monocytes % TNP 03/16/17 23:00 CSF Eosinophils % TNP 03/16/17 23:00 CSF Basophils % TNP 03/16/17 23:00 CSF Other Cells % TNP 03/16/17 23:00 CSF Glucose 59 mg/dL (40-70) 03/16/17 23:00 CSF Xanth Comm Not Observed (Not Observe) 03/16/17 23:00 CSF Total Protein 43 mg/dL (15-45) 03/16/17 23:00 MAREK Screen NONE DETECTED (None Detected) 03/17/17 15:24 Chlamy pneumoniae PCR Not Detected (Not Detect) 03/18/17 14:10 Adenovirus (PCR) Not Detected (Not Detect) 03/18/17 14:10 B. pertussis DNA (PCR) Not Detected (Not Detect) 03/18/17 14:10 Coronavirus OC43 (PCR) Not Detected (Not Detect) 03/18/17 14:10 Coronavirus HKU1 (PCR) Not Detected (Not Detect) 03/18/17 14:10 Coronavirus 229E (PCR) Not Detected (Not Detect) 03/18/17 14:10 Coronavirus NL63 (PCR) Not Detected (Not Detect) 03/18/17 14:10 EBV Capsid Ag IgG Ab 616.0 U/mL (0.0-21.9) H 03/17/17 15:24 EBV Capsid Ag IgM Ab <10.0 U/mL (0.0-43.9) 03/17/17 15:24 EBV Early Antigen IgG 39.2 U/mL (0.0-10.9) H 03/17/17 15:24 EBV Nuclear Ag Ab Titer >600.0 U/mL (0.0-21.9) H 03/17/17 15:24 Herpes Simplex Source CSF 03/16/17 23:00 Herpes Simplex DNA PCR NOT DETECTED 03/16/17 23:00 Human Metapneumovirus Not Detected (Not Detect) 03/18/17 14:10 Infectious Cole Assay Negative (Negative) 03/18/17 13:46 Influenza A (H1) PCR Not Detected (Not Detect) 03/18/17 14:10 Influ A (H1N1/09) PCR Not Detected (Not Detect) 03/18/17 14:10 Influenza A (H3) PCR Not Detected (Not Detect) 03/18/17 14:10 Influenza A Untype (PCR) Not Detected (Not Detect) 03/18/17 14:10 Influenza Type B (PCR) Not Detected (Not Detect) 03/18/17 14:10 M.pneumoniae DNA (PCR) Not Detected (Not Detect) 03/18/17 14:10 Parainfluenza 1 (PCR) Not Detected (Not Detect) 03/18/17 14:10 Parainfluenza 2 (PCR) Not Detected (Not Detect) 03/18/17 14:10 Parainfluenza 3 (PCR) Not Detected (Not Detect) 03/18/17 14:10 Parainfluenza 4 (PCR) Not Detected (Not Detect) 03/18/17 14:10 RSV (PCR) Not Detected (Not Detect) 03/18/17 14:10 Entero/Rhino (PCR) Not Detected (Not Detect) 03/18/17 14:10 Radiographic studies: Impression/recommendations: Unexplained, isolated neutropenia: We reviewed the diagnostic considerations) incision with isolated neutropenia including hematinic deficiencies, metabolic derangement such as liver, kidney, thyroid dysfunction, infection including viral syndromes, hypersplenism and the possibility of an underlying primary hematologic disorder including malignancy. Her WBC has improved significantly since last evaluation. ANC is also trending upwards. She is scheduled for bone marrow biopsy this morning but based on improvement in her CBC, I think we can hold off on bone marrow exam at this time. I suspect that her leukopenia may be related to a viral syndrome since patient herself is starting to feel better. We'll monitor for improvement in her counts. Given her clinical improvement, I think she can be discharged today and we will plan for her to have a repeat CBC on 03/25/17 for close monitoring. I will see him in the office in 2 weeks for further recommendation based on results of pending studies. We have ordered HIV and hep C testing which is pending at this time. We will wait for results. I have also added parvovirus testing to her labs from today for further evaluation of diagnostic consideration of unexplained neutropenia. We'll follow the patient along side you during this hospitalization but please do not hesitate to call regarding interval hematologic questions as they arise. Thank you for your excellent ongoing care for allowing us to see her while in- house. I discussed my impression/recommendations with Dr. Mirza with hospital team. This report was created using voice recognition software and may contain errors. It was signed but not edited to expedite communication. - Constitutional Vitals: Vital Signs Temp Pulse Resp BP Pulse Ox 03/21/17 03:19 98.2 F 51 14 111/71 94 03/20/17 22:05 97.9 F 59 16 118/80 95 03/20/17 20:00 97 03/20/17 18:46 98.3 F 60 15 126/85 97 03/20/17 14:55 98.2 F 63 16 102/72 96 03/20/17 10:51 98.4 F 66 16 118/85 97 Intake and Output 03/20/17 03/21/17 03/21/17 16:59 00:59 08:59 Intake Total 240 / 240 100 / 100 Balance 240 / 240 100 / 100 Intake: IV Fluids 100 / 100 Maxipime 2,000 MG In 100 / 100 Dextrose 5% (Minibag+) 100 ML 100 ML @ 200 mls/ hr IVPB Q8HR JAVIER Rx#: [id number] Oral 240 / 240 Other: Meal Lunch Dinner Percent of Meal Consumed 100% 0% # Voids 1 Oncology: Obj Data - Labs CBC & Chem 7: 03/21/17 03:42 03/21/17 03:42 Labs: Laboratory Results - last 24 hr 03/21/17 03/21/17 03:42 03:42 WBC 3.0 L D RBC 4.06 Hgb 12.0 Hct 35.9 MCV 88.4 MCH 29.6 MCHC 33.4 RDW 13.2 Plt Count 157 MPV 11.4 Seg Neutrophils % 12.0 Lymphocytes % 76.0 Monocytes % 8.0 Eosinophils % 2.0 Basophils % 2.0 Neutrophils # 0.4 L Lymphocytes # 2.3 Monocytes # 0.2 Eosinophils # 0.1 Basophils # 0.1 Reactive Lymphocytes Present A Smudge Cells Present A Platelet Estimate Normal Sodium 138 Potassium 3.6 Chloride 105 Carbon Dioxide 26 BUN 9 Creatinine 0.72 Est GFR ( Amer) > 60 Est GFR (Non-Af Amer) > 60 BUN/Creatinine Ratio 13 Glucose 93 Calculated Osmolality 284 Calcium 8.6 Consult Discharge Plan - Plan Referrals: Kev Raymond Jr, MD [Primary Care Provider] -
--- NOTE | 2017-03-21 08:36 | Internal Med Progress Note ---
Date of Encounter: 03/21/17 Time of Encounter: 08:33 - Assessment and plan (1) Neutropenia associated with infection Current Visit: Yes Status: Acute Assessment and plan: Severe neutropenia likely related to a viral infection (EVB?) , consider other etiologies The fact that Javier-Blas virus early antigen IgG is high is suggestive that the virus is actively replicating although it probably is not a new infection as the IgM is negative Bone marrow biopsy will be suspended as her neutrophil counts improved from 0.3 to 0.4 ( Per Dr Power) The patient and the patient's family do not feel that it would be safe to discharge her today as her neutrophil count is still 0.4. Prefer to satay until tomorrow and check counts again and to continue antibiotics monitor neutrophil count Switched Rocephin to cefepime IV day 2 ( may keep until Neutrophil are above 500 ) Neutropenic precautions, neutropenic diet hematology consulted MAREK pending (2) Viral infection Current Visit: Yes Status: Acute Assessment and plan: resp infection panel negative (3) Otitis externa Current Visit: Yes Status: Acute Assessment and plan: Continue otic cipro day 4 on left ear Qualifiers: Otitis externa type: other infective Laterality: left Chronicity: acute Qualified Code(s): H60.392 - Other infective otitis externa, left ear (4) GERD (gastroesophageal reflux disease) Current Visit: No Status: Chronic Qualifiers: Esophagitis presence: esophagitis presence not specified Qualified Code(s) : K21.9 - Gastro-esophageal reflux disease without esophagitis (5) Hypothyroidism Current Visit: No Status: Chronic Qualifiers: Hypothyroidism type: acquired Qualified Code(s): E03.9 - Hypothyroidism, unspecified (6) Tobacco abuse Current Visit: No Status: Acute Assessment and plan: Smoking cessation counseling given for 5 minutes. Nicotine patch offered (7) Headache Current Visit: Yes Status: Acute Qualifiers: Headache type: unspecified Headache chronicity pattern: unspecified pattern Intractability: intractable Qualified Code(s): R51 - Headache (8) Sinusitis Current Visit: Yes Status: Acute Qualifiers: Sinusitis location: maxillary Chronicity: acute Recurrence: recurrent Qualified Code(s): J01.01 - Acute recurrent maxillary sinusitis - Subjective Interval history: The patient and the patient's family do not feel that it would be safe to discharge her today as her neutrophil count is still 0.4. Prefer to satay until tomorrow and check counts again and to continue antibiotics Complains of pain over her sinuses. Left ear pain has improved slightly. feels weak , denies CP or SOB, has a dry cough, no abdominal pain , no dysuria , has a headache. - Constitutional Vitals: Temp Pulse Resp BP Pulse Ox 98.2 F 51 14 111/71 94 03/21/17 03:19 03/21/17 03:19 03/21/17 03:19 03/21/17 03:19 03/21/17 03:19 General appearance: Present: A&O X 3 - Head Head exam: Present: atraumatic, normocephalic - Eye Eye exam: Present: PERRL, conjuntiva pink, sclera anicteric Pupils: Present: PERRL - Neck Neck exam general surgery: Present: supple, trachea midline. Absent: lymphadenopathy - Respiratory Respiratory exam: Present: CTAB. Absent: accessory muscle use, rales, rhonchi, wheezes - Cardiovascular Cardiovascular exam: Present: RRR, +S1, +S2. Absent: diastolic murmur, gallop, rubs, systolic murmur - GI/Abdominal GI/Abdominal exam: Present: normal bowel sounds, soft, no peritoneal signs. Absent: distended, tenderness - Extremities Exam Extremities exam: Present: warm, radial pulses palpable and symetrical. Absent : calf tenderness, cyanotic, pedal edema - Neurological Exam Neurological exam: Present: CN II-XII intact, oriented X3, no focal deficits. Absent: pronater drift, facial droop, speech deficit - Skin Skin exam: Present: dry, intact Internal Medicine: Result - Labs CBC & Chem 7: 03/21/17 03:42 03/21/17 03:42 Labs: Short CBC 03/21/17 Range/Units 03:42 WBC 3.0 L D (4.3-11.1) K/mcL Hgb 12.0 (11.5-15.4) g/dL Hct 35.9 (35.3-44.9) % Plt Count 157 (140-400) K/mcL Neutrophils # 0.4 L (1.6-8.9) K/mcL BMP 03/21/17 03:42 Sodium 138 Potassium 3.6 Chloride 105 Carbon Dioxide 26 BUN 9 Creatinine 0.72 Glucose 93 Calcium 8.6 Consult Discharge Plan - Plan Referrals: Kev Raymond Jr, MD [Primary Care Provider] -
[2017-03-21] MEDS: Ciprofloxacin/Dex *EAR* Susp 7.5 ML BOTTLE LEFT EAR SCH ×2 (09:43→21:25)
[2017-03-21] MEDS: Clotrimazole Vag CRM 45 GM TUBE VG SCH ×2 (09:43→21:25)
[2017-03-21] MEDS: Cefepime HCl 2,000 MG in D5% in Water (Mini-Bag+) 100 ML IVPB SCH ×2 (09:44→17:08)
[2017-03-22] MEDS: Cefepime HCl 2,000 MG in D5% in Water (Mini-Bag+) 100 ML IVPB SCH ×2 (00:27→09:17)
[2017-03-22] MEDS: Levothyroxine 25 MCG TABLET PO SCH (06:08)
[2017-03-22] MEDS: *HR* Heparin 5,000 UNIT/ML VIAL SQ SCH (06:08)
[2017-03-22 06:34] VITALS: BP 117/77
[2017-03-22 07:03] LABS: Eosinophils # 0.1 K/mcL (0.0-0.6); Hematocrit 35.9 % (35.3-44.9); Mean Corpuscular HGB Conc 33.4 g/dL (31.6-35.5); Mean Corpuscular Hemoglobin 29.6 pg (28.0-33.3); Mean Corpuscular Volume 88.6 fL (83.0-100.0); Mean Platelet Volume 11.7 fL (9.4-12.4); Platelet Count 176 K/mcL (140-400); Red Blood Count 4.05 M/mcL (3.82-4.97); Red Cell Distribution Width 13.3 % (11.5-14.5)
[2017-03-22 07:15] LABS: BUN/Creatinine Ratio 15 (6-26); Blood Urea Nitrogen 11 mg/dL (7-20); Calcium 8.8 mg/dL (8.6-10.8); Carbon Dioxide 24 mEq/L (19-29); Chloride 106 mEq/L (98-109); Glucose 86 mg/dL (70-99); Osmolality,Calculated 287 (280-300); Potassium 3.8 mEq/L (3.5-4.5); Sodium 139 mEq/L (136-145); eGFR For African Americans > 60 (> 60); eGFR For Non-African Americans > 60 (> 60)
[2017-03-22] MEDS ORDERED: *HR* FentaNYL (PF) 100 MCG/2 ML VIAL IVP PRN (08:20)
[2017-03-22] MEDS ORDERED: *HR* Midazolam HCl 2 MG/2 ML VIAL IVP PRN (08:20)
--- NOTE | 2017-03-22 08:22 | Pre-Sedation Evaluation ---
Pre-sedation evaluation - Pre-sedation checklist Date of procedure: 03/16/17 Procedure: colon Recent Vitals: Last Vital Signs Temp 97.7 F 03/22/17 06:32 Pulse 98 03/22/17 06:32 Resp 17 03/22/17 06:32 BP 117/77 03/22/17 06:32 Pulse Ox 99 03/22/17 06:32 H&P (including ROS) documented in medical record: Yes Previous reaction to sedatives/anesthetics: No Dietary Status: NPO after Midnight Airway Assessment: Patient can open mouth completely, TMJ function normal, Micrognathia (under-bite, receding chin) absent, Neck with adequate range of motion Dentition: No loose teeth or bridges Possible difficult airway: No If Yes;: History of difficult intubation ASA Classification *see protocol: CLASS II-Mild systemic disease Plan of Care: Pt appropriate candidate for procedure/moderate/conscious sedation , Risks/benefits of procedure/sedation discussed w/ patient/family
[2017-03-22 08:34] LABS: Lymphocytes # 1.4 K/mcL (0.6-4.6); Monocytes # 0.1 K/mcL (0.0-1.3); Neutrophils # 1.7 K/mcL (1.6-8.9); Platelet Estimate Normal (Normal)
[2017-03-22 08:36] LABS: Reactive Lymphocytes Present (Not Present)
[2017-03-22] MEDS: Clotrimazole Vag CRM 45 GM TUBE VG SCH (09:17)
[2017-03-22] MEDS: Ciprofloxacin/Dex *EAR* Susp 7.5 ML BOTTLE LEFT EAR SCH (09:18)
--- NOTE | 2017-03-22 10:35 | Discharge Summary ---
Date of Encounter: 03/22/17 Time of Encounter: 10:32 - Discharge Diagnosis (1) Hypothyroidism Priority: Secondary Status: Chronic Qualifiers: Hypothyroidism type: acquired Qualified Code(s): E03.9 - Hypothyroidism, unspecified (2) Neutropenia associated with infection Priority: Primary Status: Acute - Discharge Medications Prescriptions: Cefdinir [Omnicef] 300 mg PO BID 5 Days Home Medications: Estradiol 1 mg PO HS 05/19/16 [History] Levothyroxine [Synthroid] 25 mcg PO DAILY 05/19/16 [History] Pantoprazole Sodium [Protonix] 40 mg PO DAILY 07/07/16 [History] Ibuprofen [Motrin] 200 mg PO Q6HR PRN 10/31/16 [History] Loratadine [Allergy Relief] 10 mg PO DAILY PRN 10/31/16 [History] Estradiol [Estrace] 1 appl VG QWEEK 12/16/16 [History] Loperamide [Imodium] 2 mg PO TID PRN 12/16/16 [History] Cefdinir [Omnicef] 300 mg PO BID 5 Days 03/22/17 [Rx] Allergies/Adverse Reactions: Allergies No Known Allergies Allergy (Verified 03/16/17 20:09) Date of admission: 03/18/17 14:52 Primary care physician: Kev Raymond Jr, MD Consults: 03/19/17 07:54 Consult to Oncology Hematology [CONS] Routine Consulting Provider: Maninder Power Reason for Consult: neutropenia Call Completed: Yes Discharging clinician: Daniel Chowdary Anticipated date of discharge: 03/22/17 - Patient Status Disposition: Home, Self-Care Condition: Fair Functional capacity at discharge: independent ambulation Overall status at discharge: patient is back to baseline - Discharge Instructions Instructions: Cefdinir (By mouth), Sinusitis (GEN), Otitis Externa (GEN), Fever in Adults (GEN), Gastroenteritis (DC), Neutropenia (GEN) Follow Up With: Kev Raymond Jr, MD [Primary Care Provider] - 03/28/17 4:15 pm Maninder Power MD [Partnered Physician] - 04/08/17 2:30 pm - Diet and Activity Activity: resume usual activities as tolerated Diet: advance to your usual diet Interval History: Ms. Fletcher is a 42 year old woman who presented with a fever of 102.6 and a syncopal episode associated with lethargy and headaches and has undergone extensive evaluation including spinal tap etc. all of which have returned unremarkable. Pancultures are negative to date including CSF culture. No obvious infectious etiology was detected. she was started on empiric antibiotic coverage with Rocephin. Since her hospitalization, she has been noted with decline in WBC count. Hematology is consulted for worsening neutropenia. Patient does not have any prior diagnosis of hematologic disorder or malignancy. she has viral serologies show quite high titers of EBV which may indicate prior exposure such as mononucleosis as per hematology. Her last imaging studies on record including CT chest, abdomen, pelvis last October were all negative for acute abnormality and no indication of underlying malignancy. She is up-to-date on age-appropriate health maintenance with her last breast imaging from 12/30/16 being unremarkable BI-RADS Category 2. with emperic IV antibiotics and supportive tx, her white counts improved, hence there is no need of BM exam at this time. she has improved clinically, wbc improved to 3.3 , ANC of 1700 and seh does not have any fever. she is being dc today in stable condition, will continue course of antibiotic with omnicef to complete 7 days. she will f/u with repeat cbc in with hematology. Hospital course: Ms. Fletcher is a 42 year old female Time spent discussing smoking cessation with patient: more than 10 minutes - Time Spent with Patient Total time spent providing and/or coordinating discharge services: Greater than 30 minutes - Constitutional Vitals: Temp Pulse Resp BP Pulse Ox 97.7 F 98 17 117/77 99 03/22/17 06:32 03/22/17 06:32 03/22/17 06:32 03/22/17 06:32 03/22/17 06:32 General appearance: Present: A&O X 3 Exam: - Head Head exam: Present: atraumatic, normocephalic - Eye Eye exam: Present: PERRL, conjuntiva pink, sclera anicteric Pupils: Present: PERRL - Neck Neck exam general surgery: Present: supple, trachea midline. Absent: lymphadenopathy - Respiratory Respiratory exam: Present: CTAB. Absent: accessory muscle use, rales, rhonchi, wheezes - Cardiovascular Cardiovascular exam: Present: RRR, +S1, +S2. Absent: diastolic murmur, gallop, rubs, systolic murmur - GI/Abdominal GI/Abdominal exam: Present: normal bowel sounds, soft, no peritoneal signs. Absent: distended, tenderness - Extremities Exam Extremities exam: Present: warm, radial pulses palpable and symetrical. Absent : calf tenderness, cyanotic, pedal edema - Neurological Exam Neurological exam: Present: CN II-XII intact, oriented X3, no focal deficits. Absent: pronater drift, facial droop, speech deficit - Skin Skin exam: Present: dry, intact
[2017-03-24 13:39] LABS: Parvovirus B19, IgG 2.03 IV (<=0.89); Parvovirus B19, IgM 12.09 IV (<=0.89)
== END 2017-03-22 11:39 | disposition home or self-care (01) | DRG 809 ==
LOC: EMEROO 19:58 → 3NENU 19:58 → 3BNU 03-21 09:04
PROVIDERS: ADMIT Internal Medicine; ATTEND Internal Medicine